=== PATIENT | female | born 1935 | race Caucasian/White ===

== ENCOUNTER 2016-07-10 07:44 | Inpatient (IN) | payer MEDICARE ==
[~2016-07-10] VITALS: Ht 157.5 cm; Wt 49.6 kg
[2016-07-10] VITALS (7 sets, daily range): BP systolic 159–224; BP diastolic 72–104; PULSE 64–76; RESP 16–20; TEMP 96.7–98.7; O2SAT 95–98
[~2016-07-10 07:44] MED LIST: ALPR.25 PO; ASPI81TA82 PO; CALC750C PO; CITR500T PO; CORE12.5 PO; COZA50TA PO; GABA300C3 PO; MULT1TAB46 PO; PROM25TA5 PO; ROSU20 PO; TRAM50TA PO; WARF2.5 PO; WARF2.5T40 PO; Z.0.WALKERFRONT; ZOLP5TAB3 PO
[2016-07-10] MEDS ORDERED: SODIUM CHLOR 0.9% 1000 ML INJ 1,000 ML IV SCH ×2 (08:14→10:58)
[2016-07-10] MEDS ORDERED: SODIUM CHLORIDE 0.9% FLUSH 5 ML FLUSH IVF PRN (08:15)
[2016-07-10] MEDS ORDERED: PANTOPRAZOLE SODIUM 40 MG VIAL IVP ONE (08:15)
[2016-07-10] MEDS ORDERED: ONDANSETRON HCL 4 MG/2 ML VIAL IVP ONE (08:15)
--- NOTE | 2016-07-10 08:20 | PD ---
HPI Chief Complaint: Abdominal Pain Time Seen by Provider: 08:14 Travel History International Travel<30 days: No Contact w/Intl Traveler<30days: No Traveled to known affect area: No History of Present Illness HPI 81yo F with PMH of CAD s/p bypass surgery, HTN and left knee replacement presents to the ED with c/o generalized abdominal pain since 2am today. States she is dry heaving and pain is worst when she does not. Also had some chest discomfort when she is dry heaving. Denies any chest pain otherwise. Denies any fever, sob, urinary complaints, diarrhea, focal weakness or numbness. States she ate at [employer] last night and her had diarrhea. Pain is hard to describe and is generalized in the abdomen. Has not really had similar pain before. PFSH Past Medical History Hx Anticoagulant Therapy: Yes Arthritis: Yes Heart Rhythm Problems: Yes (a fib) Cancer: Yes (skin ca) Cardiac Catheterization: Yes Cardiovascular Problems: Yes (multi bypass surgery, afib ) High Cholesterol: Yes Coronary Artery Disease: Yes Diabetes: No Diminished Hearing: No Endocrine: No Glaucoma: No Genitourinary: No Hepatitis: No Hiatal Hernia: No Hypertension: Yes Immune Disorder: Yes (polymyalgia) Musculoskeletal: Yes (arthritis) Neurologic: No Psychiatric: No Reproductive: No Respiratory: No Thyroid Disease: No Menopausal: Yes Past Surgical History Abdominal Surgery: No AICD: No Cardiac Surgery: Yes (multi cardiac bypass) Coronary Artery Bypass Graft: Yes (7 vessel bypass) Ear Surgery: No Endocrine Surgery: No Eye Surgery: Yes (bilateral catract surgery) Genitourinary Surgery: No Gynecologic Surgery: No Joint Replacement: No Neurologic Surgery: No Oral Surgery: Yes (CAPS) Pacemaker: No Thoracic Surgery: Yes Social History Alcohol Use: Yes (WINE OCCAS.) Tobacco Use: No Substance Use: No Allergies-Medications (Allergen,Severity, Reaction): Coded Allergies: Erythromycin (Unverified Allergy, Severe, DYSPNEA, ANXIETY, 07/10/16) Latex (Unverified Allergy, Intermediate, 07/10/16) Penicillin (Unverified Allergy, Unknown, 07/10/16) Codeine (Unverified Adverse Reaction, Severe, VOMITING, 07/10/16) Reported Meds & Prescriptions Reported Meds & Active Scripts Active Reported Zolpidem (Zolpidem Tartrate) 5 Mg Tab 5 Mg PO HS PRN Alprazolam 0.25 Mg Tab 0.25 Mg PO Q8H PRN Tums (Calcium Carbonate (Antacid)) 500 Mg Chew 500 Mg CHEW DAILY Warfarin 2.5 Mg Tab 2.5 Mg PO SUTUTHSA Warfarin 3 Mg Tab 3 Mg PO MOWEFR Aspirin 81 (Aspirin) 81 Mg Tabdr 81 Mg PO MOWEFR Crestor (Rosuvastatin Calcium) 10 Mg Tab 10 Mg PO HS Carvedilol 6.25 Mg Tab 6.25 Mg PO BID Losartan (Losartan Potassium) 50 Mg Tab 50 Mg PO DAILY Review of Systems Except as stated in HPI: all other systems reviewed are Neg Physical Exam Narrative GENERAL: 81yo F not in distress. SKIN: Warm and dry. HEAD: Atraumatic. Normocephalic. NECK: Trachea midline. No JVD. CARDIOVASCULAR: Regular rate and rhythm. No murmur appreciated. RESPIRATORY: No accessory muscle use. Clear to auscultation. Breath sounds equal bilaterally. GASTROINTESTINAL: Abdomen soft, ttp epigastric, RLQ and periumbilical region. No rebound tenderness or guarding. MUSCULOSKELETAL: No obvious deformities. No clubbing. No cyanosis. No edema. NEUROLOGICAL: Awake and alert. No obvious cranial nerve deficits. Motor grossly within normal limits. Normal speech. PSYCHIATRIC: Appropriate mood and affect; insight and judgment normal. Data Data Last Documented VS Vital Signs Date Time Temp Pulse Resp B/P Pulse Ox O2 Delivery O2 Flow Rate FiO2 07/10/16 10:00 76 16 174/72 97 Room Air 07/10/16 08:10 98.3 Orders Complete Blood Count With Diff (07/10/16 08:14) Comprehensive Metabolic Panel (07/10/16 08:14) Lipase (07/10/16 08:14) Prothrombin Time / Inr (Pt) (07/10/16 08:14) Act Partial Throm Time (Ptt) (07/10/16 08:14) Ct Abd/Pel W Iv Contrast(Rout) (07/10/16 08:14) Iv Access Insert/Monitor (07/10/16 08:14) Ecg Monitoring (07/10/16 08:14) Oximetry (07/10/16 08:14) Ondansetron Inj (Zofran Inj) (07/10/16 08:15) Pantoprazole Inj (Protonix Inj) (07/10/16 08:15) Sodium Chlor 0.9% 1000 Ml Inj (Ns 1000 M (07/10/16 08:14) Sodium Chloride 0.9% Flush (Ns Flush) (07/10/16 08:15) Electrocardiogram (07/10/16 08:14) Troponin I (07/10/16 08:14) Hydralazine Inj (Apresoline Inj) (07/10/16 09:00) Metoclopramide Inj (Reglan Inj) (07/10/16 09:15) Iohexol 350 Inj (Omnipaque 350 Inj) (07/10/16 09:37) Ketorolac Inj (Toradol Inj) (07/10/16 10:00) D5-1/2 Ns + Kcl 20 Meq Inj (D5-1/2 Ns + (07/10/16 10:15) NPO (07/10/16 10:03) Admit Order (Ed Use Only) (07/10/16 10:18) Labs Laboratory Tests Test 07/10/16 08:18 White Blood Count 10.3 TH/MM3 Red Blood Count 4.85 MIL/MM3 Hemoglobin 15.2 GM/DL Hematocrit 44.9 % Mean Corpuscular Volume 92.7 FL Mean Corpuscular Hemoglobin 31.4 PG Mean Corpuscular Hemoglobin 33.8 % Concent Red Cell Distribution Width 12.9 % Platelet Count 206 TH/MM3 Mean Platelet Volume 7.6 FL Neutrophils (%) (Auto) 87.7 % Lymphocytes (%) (Auto) 5.9 % Monocytes (%) (Auto) 2.9 % Eosinophils (%) (Auto) 0.4 % Basophils (%) (Auto) 3.1 % Neutrophils # (Auto) 9.1 TH/MM3 Lymphocytes # (Auto) 0.6 TH/MM3 Monocytes # (Auto) 0.3 TH/MM3 Eosinophils # (Auto) 0.0 TH/MM3 Basophils # (Auto) 0.3 TH/MM3 CBC Comment DIFF FINAL Differential Comment Prothrombin Time 20.7 SEC Prothromb Time International 1.8 RATIO Ratio Activated Partial 35.9 SEC Thromboplast Time Sodium Level 135 MEQ/L Potassium Level 4.1 MEQ/L Chloride Level 95 MEQ/L Carbon Dioxide Level 28.7 MEQ/L Anion Gap 11 MEQ/L Blood Urea Nitrogen 9 MG/DL Creatinine 0.84 MG/DL Estimat Glomerular Filtration 65 ML/MIN Rate Random Glucose 142 MG/DL Calcium Level 9.4 MG/DL Total Bilirubin 1.2 MG/DL Aspartate Amino Transf 32 U/L (AST/SGOT) Alanine Aminotransferase 25 U/L (ALT/SGPT) Alkaline Phosphatase 75 U/L Troponin I LESS THAN 0.02 NG/ML Total Protein 7.6 GM/DL Albumin 3.7 GM/DL Lipase 93 U/L [facility] Medical Decision Making Medical Screen Exam Complete: Yes Emergency Medical Condition: Yes Interpretation(s) EKG: NSR 63bpm. LAD. TWI aVL, V2. Q wave V1, V2. III. Differential Diagnosis Gastroenteritis vs. pancreatitis vs. colitis vs. appendicitis vs. UTI Narrative Course 81yo F with abdominal pain since 2am this morning. +Nausea and dry heaving. No history of abdominal surgery. Pt with cardiac history and bypass surgery. Labs reviewed, no leukocytosis. Mild elevation in total bilirubin 1.2. Troponin negative. Lipase normal. Liver enzymes and alk phos normal. INR subtherapeutic at 1.8. Pt is on coumadin. CT abd/pelvis showed suspicion for a small bowel obstruction versus ileus. No intrapelvic mass seen and no discrete transition point identified. There is mild abdominopelvic ascites. Pt had normal bowel movement yesterday. Pt is very tender in right lower and mid abdomen. Clinically I feel that pt has ileus rather than small bowel obstruction since she is having flatus, and last bowel movement was yesterday. She states she hasnt had good bowel movement since her left knee surgery a few months ago. I discussed case with general surgeon Dr. Alvarez and he is aware of her and consultation was placed. I discussed with Dr. Webb who accepted pt to her service. Diagnosis Primary Impression: Ileus Admitting Information Admitting Physician Requests: Admit Susanne Barnes DO Jul 10, 2016 08:20 Susanne Barnes DO Jul 10, 2016 08:20
[2016-07-10 08:49] LABS: AUTOMATED NEUTROPHIL # 9.1 TH/MM3 (1.8-7.7); BASOPHIL # 0.3 TH/MM3 (0-0.2); BASOPHIL % 3.1 % (0.0-2.0); EOSINOPHIL % 0.4 % (0.0-4.0); HEMATOCRIT 44.9 % (35.0-46.0); LYMPH % 5.9 % (9.0-44.0); LYMPHOCYTE # 0.6 TH/MM3 (1.0-4.8); MEAN CELL VOLUME 92.7 FL (80.0-100.0); MEAN CORPUSCULAR HEMOGLOBIN 31.4 PG (27.0-34.0); MEAN CORPUSCULAR HGB CONC 33.8 % (32.0-36.0); MONO % 2.9 % (0.0-8.0); NEUT % 87.7 % (16.0-70.0); PLATELET COUNT 206 TH/MM3 (150-450); RED BLOOD COUNT 4.85 MIL/MM3 (4.00-5.30); RED CELL DISTRIBUTION WIDTH 12.9 % (11.6-17.2); WHITE BLOOD COUNT 10.3 TH/MM3 (4.0-11.0)
[2016-07-10 08:53] LABS: HEMO FLAGS DIFF FINAL
[2016-07-10 08:54] LABS: CHLORIDE 95 MEQ/L (98-107); POTASSIUM 4.1 MEQ/L (3.5-5.1); SODIUM (NA) 135 MEQ/L (136-145)
[2016-07-10 08:58] LABS: ANION GAP 11 MEQ/L (5-15); BICARBONATE 28.7 MEQ/L (21.0-32.0); BLOOD UREA NITROGEN 9 MG/DL (7-18)
[2016-07-10 09:00] LABS: APTT (PATIENT) 35.9 SEC (24.3-30.1); INTERNATIONAL NORMALIZED RATIO 1.8 RATIO; PROTHROMBIN TIME - PATIENT 20.7 SEC (9.8-11.6)
[2016-07-10] MEDS ORDERED: hydrALAZINE HCL 20 MG/ML VIAL IV PUSH ONE (09:00)
[2016-07-10 09:01] LABS: ALT (GPT) 25 U/L (10-53); AST (GOT) 32 U/L (15-37); GLOMERULAR FILTRATION RATE 65 ML/MIN (>89)
[2016-07-10 09:03] LABS: TOTAL BILIRUBIN ADULT 1.2 MG/DL (0.2-1.0)
[2016-07-10 09:04] LABS: ALKALINE PHOSPHATASE 75 U/L (45-117)
[2016-07-10] MEDS ORDERED: WARF-58 PO (09:09)
[2016-07-10] MEDS ORDERED: ASPI-110 PO (09:09)
[2016-07-10] MEDS ORDERED: WARF-18 PO (09:09)
[2016-07-10] MEDS ORDERED: ALPR0.25 PO (09:09)
[2016-07-10] MEDS ORDERED: LOSA50TA PO (09:09)
[2016-07-10] MEDS ORDERED: ZOLP5TAB3 PO (09:09)
[2016-07-10] MEDS ORDERED: CARV6.252 PO (09:09)
[2016-07-10] MEDS ORDERED: TUMS500C CHEW (09:09)
[2016-07-10] MEDS ORDERED: ROSU10 PO (09:09)
[2016-07-10] MEDS ORDERED: METOCLOPRAMIDE INJ 10 MG in SODIUM CHLORIDE 0.9% INJ 50 ML IV ONE (09:15)
[2016-07-10] MEDS ORDERED: IOHEXOL 350 MG/ML 10 ML VIAL (for RAD DIAG) IV ONE (09:37)
--- NOTE | 2016-07-10 09:50 | RADHPO ---
EXAM DATE/TIME: 07/10/2016 09:25 [facility] COMPARISON: No previous studies available for comparison. INDICATIONS : Diffuse abdominal pain. Nausea and vomiting. IV CONTRAST: 80 cc Omnipaque 350 (iohexol) IV ORAL CONTRAST: No oral contrast ingested. RADIATION DOSE: 4.73 CTDIvol (mGy) MEDICAL HISTORY : Cardiovascular disease. Hypertension. Gastroesophageal reflux disease. SURGICAL HISTORY : CABG ENCOUNTER: Initial ACUITY: 1 day PAIN SCALE: 7/10 LOCATION: Diffuse abdomen. TECHNIQUE: Volumetric scanning of the abdomen and pelvis was performed. Using automated exposure control and ad justment of the mA and/or kV according to patient size, radiation dose was kept as low as reasonably achievable to obtain optimal diagnostic quality images. FINDINGS: The examination is abnormal demonstrating diffusely dilated loops of small bowel which measure up to 3.6 cm in diameter. There are a few air-fluid levels present. No oral contrast was used. The diste nded loops appear to be in the mid and distal small bowel. There is also free fluid present in the u pper abdomen, tracking down both paracolic gutters and a mild amount of free fluid in the pelvis. No evidence of free air. The liver, spleen, kidneys, adrenal glands, and pancreas are grossly intact. Wall calcification is p resent in nondistended abdominal aorta. The visualized lower lungs are clear. Wide windows for bony detail demonstrate the osseous structures to be intact. CONCLUSION: Findings are suspicious for a small bowel obstruction versus ileus. No intrapelvic mass seen and no discrete transition point identified. There is also a mild amount of abdominopelvic ascites. Ralph Baeza MD on July 10, 2016 at 9:42 Board Certified Radiologist. This report was verified electronically.
[2016-07-10] MEDS ORDERED: KETOROLAC TROMETHAMINE 30 MG/ML (IVP) VIAL IV PUSH ONE ×2 (10:00→10:45)
[2016-07-10] MEDS ORDERED: D5-1/2 NS + KCL 20 MEQ INJ 1,000 ML IV SCH (10:15)
[2016-07-10] MEDS ORDERED: SODIUM CHLORIDE 0.9% FLUSH 5 ML FLUSH FLUSH PRN ×2 (11:00→13:30)
[2016-07-10] MEDS ORDERED: PROCHLORPERAZINE 25 MG SUPP PR PRN (11:00)
[2016-07-10] MEDS ORDERED: ONDANSETRON HCL 4 MG/2 ML VIAL IVP PRN (11:00)
[2016-07-10] MEDS ORDERED: ACETAMINOPHEN 325 MG TAB PO PRN (13:30)
[2016-07-10] MEDS ORDERED: NALOXONE HCL 0.4 MG/ML AMP IV PRN (13:30)
[2016-07-10] MEDS ORDERED: WARFARIN SOD 2.5 MG TAB PO SCH (16:00)
--- NOTE | 2016-07-10 17:40 | HHI.PR ---
Addendum to Inpatient Note Addendum Reason: Additional Documentation Additional Information Pt seen, full dictation to follow. Ate at [employer] about 2pm yesterday ( salad and spagetti with meat sauce), had minimal for dinner at home last PM, awakened at 2am with dry heaves and abdominal pain. No actual emesis. No diarrhea. Feeling better now and abdominal pain mostly gone, just achy. No vomiting this afternoon. concerned about not having her medications today. Will start a clear liquid diet as she has bowel sounds at this time. recheck labs in the AM. Increase activity as tolerated. I doubt bowel obstruction at this time and more likely to be gastroenteritis in nature. Abdomen is benign on exam. She has chronic GI sensativity. Josette Hyatt MD Jul 10, 2016 17:40
[2016-07-10] MEDS: D5-1/2 NS + KCL 20 MEQ INJ 1,000 ML IV SCH ×2 (18:11→21:05)
[2016-07-10] MEDS: ALPRAZolam 0.25 MG TAB PO PRN (18:11)
--- NOTE | 2016-07-10 18:56 | EKG ---
Date Performed: 07/10/2016 Time Performed: 08:36:34 PTAGE: 81 years EKG: Sinus rhythm Left axis deviation rSr'(V1) - probable normal variant Left ventricular hypertrophy Septal and later al ST-T changes may be due to hypertrophy and/or ischemia Abnormal ECG PREVIOUS TRACING : 02/28/2005 01.15 Compared to the previous tracing, change in transition in Q RS may be due to lead placement DOCTOR: Everton Biswas Interpretating Date/Time 07/10/2016 18:55:26
[2016-07-10] MEDS: ATORVASTATIN 20 MG TAB PO SCH (21:00)
[2016-07-10] MEDS ORDERED: SODIUM CHLORIDE 0.9% FLUSH 5 ML FLUSH FLUSH SCH (21:00)
[2016-07-10] MEDS: SODIUM CHLORIDE 0.9% FLUSH 5 ML FLUSH FLUSH SCH (21:00)
[2016-07-10] MEDS: CARVEDILOL 6.25 MG TAB PO SCH (21:00)
[2016-07-10] MEDS: ZOLPIDEM TARTRATE 5 MG TAB PO PRN (21:06)
[2016-07-11] VITALS (8 sets, daily range): BP systolic 152–199; BP diastolic 70–93; PULSE 65–88; RESP 12–20; TEMP 96.5–98.9; O2SAT 96–100
[2016-07-11] MEDS: ENALAPRILAT 1.25 MG/ML VIAL IV PUSH PRN ×3 (05:11→21:33)
[2016-07-11] MEDS: D5-1/2 NS + KCL 20 MEQ INJ 1,000 ML IV SCH (05:14)
--- NOTE | 2016-07-11 06:30 | RADHPO ---
EXAM DATE/TIME: 07/11/2016 06:07 [facility] COMPARISON: CT ABDOMEN & PELVIS W CONTRAST, July 10, 2016, 9:25. INDICATIONS : Abdominal pain, nausea MEDICAL HISTORY : Cardiovascular disease. Hypertension. Gastroesophageal reflux disease SURGICAL HISTORY : CABG. ENCOUNTER: Subsequent ACUITY: 2 days PAIN SCORE: 7/10 LOCATION: Entire abdomen FINDINGS: There are extensive atherosclerotic calcifications of the aorta and iliac vessels. Multiple dilated l oops of gas-filled small bowel are again seen in the left mid to upper abdomen. A relative paucity of distal bowel gas is noted. A small bowel obstruction is suspected. There is degenerative disc diseas e and mild levoscoliosis centered at L4. CONCLUSION: Dilated bowel loops concerning for small bowel obstruction. Cristian Cordero MD on July 11, 2016 at 6:27 Board Certified Radiologist. This report was verified electronically.
[2016-07-11 07:01] LABS: AUTOMATED NEUTROPHIL # 11.5 TH/MM3 (1.8-7.7); BASOPHIL % 0.1 % (0.0-2.0); EOSINOPHIL % 0.1 % (0.0-4.0); HEMATOCRIT 44.6 % (35.0-46.0); LYMPH % 6.1 % (9.0-44.0); LYMPHOCYTE # 0.8 TH/MM3 (1.0-4.8); MEAN CELL VOLUME 93.3 FL (80.0-100.0); MEAN CORPUSCULAR HEMOGLOBIN 31.5 PG (27.0-34.0); MEAN CORPUSCULAR HGB CONC 33.8 % (32.0-36.0); MONO % 5.1 % (0.0-8.0); NEUT % 88.6 % (16.0-70.0); PLATELET COUNT 208 TH/MM3 (150-450); RED BLOOD COUNT 4.78 MIL/MM3 (4.00-5.30); RED CELL DISTRIBUTION WIDTH 13.4 % (11.6-17.2)
[2016-07-11 07:06] LABS: POTASSIUM 4.3 MEQ/L (3.5-5.1)
[2016-07-11 07:10] LABS: HEMO FLAGS DIFF FINAL
[2016-07-11 07:15] LABS: BICARBONATE 24.9 MEQ/L (21.0-32.0)
[2016-07-11] MEDS: SODIUM CHLORIDE 0.9% FLUSH 5 ML FLUSH FLUSH SCH ×2 (08:18→21:33)
--- NOTE | 2016-07-11 08:48 | MH ---
cc: ERASMO RUSSO M.D. DATE OF ADMISSION: 07/10/2016 The patient was seen at 5:30 p.m. on 07/10/2016. CHIEF COMPLAINT Abdominal pain. ADMITTING DIAGNOSIS Bilious, possible small bowel obstruction. HISTORY OF PRESENT ILLNESS Ms. Rios is an 81-year-old white female who has had chronic GI complaints in the past but nothing to this extent. She notes she ate at the [employer] at about 2 o'clock on 07/09/2016 and had a salad and spaghetti with meat sauce. She really was not hungry later in the evening and had just a very light snack in the evening with her . She then awakened at 2 o'clock in the morning with severe abdominal pain and dry heaves that continued for several hours. Thus she came to the emergency department for evaluation. She notes that since arriving to the emergency room and having a few doses of Zofran her nausea has resolved and her abdominal pain is very minimal at this point. She had a bowel movement approximately two days ago that was normal. She has had no blood in her stool, no blood in her urine, no blood in any emesis. She notes she really has not had any significant emesis just dry heaves. She is feeling well at this point, was frustrated that she was on nothing to eat by mouth. She is also concerned about not having her other medications since yesterday evening. PAST MEDICAL HISTORY 1. Osteoporosis. 2. Hyperlipidemia. 3. History of hyponatremia. 4. Thrombocytopenia. 5. Hypertension. 6. Heart disease, status post cardiac bypass. 7. Mitral valve disorder. 8. Gastroesophageal reflux disease. 9. Polymyalgia rheumatica since 2000, now off steroids. 10.Insomnia. 11.Early satiety since 2004. 12.Dyspnea that was existing for quite some time after her cardiac bypass but has improved. 13.Atrial fibrillation. 14.TIA in 2013. PAST SURGICAL HISTORY 1. Cardiac bypass. 2. Rectal fissure repair. 3. Tubal ligation. 4. Left knee replacement February 2016 from which she has healed well, but has had somewhat of a prolonged course of discomfort postoperatively. SOCIAL HISTORY She is since 1954, not currently working. She has a high school education. She has rare alcohol use. She has a never smoker. MEDICATIONS 1. Ambien 5 mg at bedtime p.r.n. 2. Xanax 0.25 mg p.r.n. anxiety. 3. She had been taking gabapentin at night for neuropathic feelings to her legs and her chest since her bypass surgery but has stopped that. 4. Losartan 50 mg once a day. 5. Carvedilol 6.25 mg twice a day. 6. Aspirin 81 mg daily. 7. Crestor 10 mg q.p.m. 8. Tums, two tablets b.i.d. 9. Warfarin 2.5 mg daily, alternating with 3 mg per day. ALLERGIES 1. PENICILLIN CAUSED URTICARIA. 2. MEDROL CAUSED DYSPNEA. 3. CODEINE CAUSED GI UPSET. 4. LISINOPRIL/HYDROCHLOROTHIAZIDE DID NOT TOLERATE. 5. 325 MG ASPIRIN CAUSED NOSEBLEEDS. 6. NORVASC CAUSED HYPOTENSION. 7. CELEBREX CAUSED GI UPSET. FAMILY HISTORY She has a brother who at age 40 with complications of a cardiac bypass surgery. She has two daughters who are healthy. Her father at 57 with presumed cancer. He had COPD. Her mother at 90 with Alzheimer's, MIs in her 40s. She has a sister who had a heart attack at age 78, also with hypertension and rheumatic heart disease status post valve replacement and episode of urosepsis. She has a second sister who is healthy. She has a son who at age 25 of Chris's syndrome. She has another son with a benign kidney tumor and also had cardiac bypass at age 46. IMMUNIZATIONS Tetanus in 1989 and in 2005. Pneumovax-23 in 1999 and 2008. Prevnar given 09/18/2015. Flu vaccine 02/04/2016. OTHER PHYSICIANS Dr. Mckeon, Dr. Auguste, Dr. Carlton Wells, Dr. Racquel Mccloud. REVIEW OF SYSTEMS She denies any chest discomfort at this time other than her normal achiness around her scar site from her bypass surgery. No shortness of breath. She has had no upper respiratory symptoms. No changes in vision or hearing. No sore throat. No lymph nodes in her neck. No rashes. She has had the abdominal pain as described above. Currently with very minimal discomfort, just an achy sensation to her abdomen. She has had no vomiting nor dry heaves for several hours. No bowel movement. She has had normal urination per her report. No vaginal discharge or irritation. She has had no lower extremity edema. No changes to her skin. She still has an ache to her left main but it is overall healing well and she has been walking well. She last saw Dr. Mccloud in January 2016 for bloating, gas, belching and epigastric discomfort. She has had a recent extensive workup and she has been to the [facility] for a second opinion. She had an EGD done 11/26/2015 that showed H. pylori. She apparently was treated with citrucil and stopped metamucil. She was also treated with IBgard at that time. It does not sound like she actually had antibiotic therapy for H. pylori at that time. she has had less regular BM since then. Last BM was on 07/09/16. rest of ROS was negative. PHYSICAL EXAMINATION VITAL SIGNS: Upon admission her blood pressure was 183/99, temperature 98.3, pulse 64, respiratory rate 18. By the time I had seen her last evening her blood pressure was down to 159/80, temperature 96.7, pulse 70, respiratory rate 18, 95% on room air. GENERAL: In general she is a thin, elderly white female lying in bed with her at her bedside. She is somewhat anxious. HEENT: Benign. NECK: Supple without lymphadenopathy. No supraclavicular adenopathy. CARDIOVASCULAR: Regular rate and rhythm without murmur. She did not sound to be in atrial fibrillation at that time. LUNGS: Clear to auscultation bilaterally. No wheezes. No rhonchi. CHEST: She has a sternal scar well-healed. ABDOMEN: Soft. She did have somewhat tinkling bowel sounds but definitely present. I was able to palpate her abdomen without difficulty and she did not appear to be tender other than very minimally to the epigastrium. She had no distension. 2+ femoral pulses. EXTREMITIES: Full range of motion of the hips and knees. Her scar to the left knee has been very well-healed. She has no edema. She has 1+ posterior tibial pulses with warm toes. SKIN: She has no rash noted to her skin. ASSESSMENT AND PLAN 1. Possible ileus. I am really more concerned that she has a gastroenteritis as I have seen several cases of this recently. Her white count was not elevated on admission, it was 10.3, but she did have slight left shift with 87.7% neutrophils. She has had no fever. Given the fact that she now has bowel sounds and she is feeling better, will try her on clear liquids this evening and reinstitute her normal medications from home, and monitor overnight. The emergency room had put in a surgical consultation for small bowel obstruction but I do not see that is an indication at this time and I have called the surgeon to cancel the consult. Will re-consult if needed. 2. Hypertension and heart disease. Will continue her on her usual medications from home. 3. Chronic history of GI issues. She has seen Dr. Mccloud. I will discuss with her further in the morning about the H. pylori and possible therapies if that is an indication. 4. History of atrial fibrillation with anticoagulation. Her INR was 1.8. Will continue her Coumadin as normally directed as there has been no evidence of bleeding. No other DVT prevention is needed at this time. MD KAYE Shi/SOCORRO /7:43 AM /8:01 AM MTDMariama
[2016-07-11] MEDS: LOSARTAN 50 MG TAB PO SCH (08:49)
[2016-07-11] MEDS: CARVEDILOL 6.25 MG TAB PO SCH ×2 (08:49→21:33)
[2016-07-11] MEDS: ASPIRIN EC 81 MG TABEC PO SCH (08:49)
[2016-07-11] MEDS ORDERED: BISACODYL 10 MG SUPP RECTAL ONE (09:15)
--- NOTE | 2016-07-11 09:23 | HHI.FPPN ---
Subjective Remarks Feeling pretty good this AM. Notes pain yesterday was 9-10. Minimal today but rates it about a 5. States her pain this time was much different than her chronic daily discomfort. No fever. She had broth last PM and her PM meds without any problems. Fair sleep last PM as she states the nurses kept waking her up. No BM since admit. No nausea overnight. Was slightly nauseated this AM upon first getting up but that has gone. She is anxious to get some breakfast. no CP, no SOB, knee somewhat achy, otherwise feeling fine. Inquiring about going home. Objective Vitals Vital Signs Date Time Temp Pulse Resp B/P Pulse Ox O2 Delivery O2 Flow Rate FiO2 07/11/16 08:11 97.6 71 16 152/80 99 07/11/16 07:08 98.3 72 20 199/93 96 Manual Cuff/Palpation 07/11/16 05:50 164/70 Automatic Cuff 07/11/16 00:00 98.9 88 20 158/83 96 07/10/16 20:00 98.7 72 20 189/80 96 07/10/16 12:00 96.7 70 18 159/80 95 07/10/16 10:58 72 20 175/80 96 Room Air 07/10/16 10:00 76 16 174/72 97 Room Air I/O 07/10/16 07/10/16 07/10/16 07/11/16 07/11/16 07/11/16 07:00 15:00 23:00 07:00 15:00 23:00 Intake Total 52 ml 989 ml 897 ml 60 ml Balance 52 ml 989 ml 897 ml 60 ml Intake Oral 180 ml 60 ml IV Total 52 ml 809 ml 897 ml # Voids 4 2 # Bowel Movements 0 0 Result Diagram: 07/11/16 0535 07/11/16 0535 Objective Remarks Gen: Thin WF, no distress, appears comfortable, speaking and moving well in bed CV; RRR no murmur, lungs CTA bilaterally, no wheezing, no rhonchi Abd: Soft, not distended or tympanic. No discomfort to percussion. Active BS that sound normal this AM, denies pain during the bowel sounds even the loud ones. She notes minimal mid abdominal discomfort to palpation EXt: no edema, moving well in bed. Urinary Catheter: No Vascular Central Line Catheter: No A/P Discharge Planning To home once tolerating PO diet Problem List: (1) Ileus Status: Acute Plan: her CT scan and then xray this AM still show dilated small bowel loops, however she seems to be doing well. Will continue with clear liquids this AM, give dulcolax suppository to see if we can clear her bowel, increase activity with walking in the halls. Will check on her before lunch and if she has succeeded in BM will advance diet and discharge if tolerating that. I don't see a need for surgical intervention at this time. If worsening with diet/ activity or no BM will hold in hospital until clearing. d/w Dr. Mccloud. My concern is the note of free fluid in her abdomen. She hasn't had abdominal surgery in the past. No other reason for the fluid known. Will put a consult to Dr. Tom who is on for their office today. (2) Nausea Status: Acute Plan: Much better. She hasn't had meds since yesterday AM. (3) ASHD (arteriosclerotic heart disease) Status: Chronic Plan: no symptoms at this time. Continue home meds. BPs higher this AM but she didn't have her meds yesterday AM. She will have her morning meds soon. Sees Dr. Narayan outpatient. (4) OA (osteoarthritis) of knee Status: Chronic Plan: She has recently had left knee surgery and healing well but still achy. (5) Constipation Status: Chronic Plan: Chronic issues. She had been on metamucil for years. When she went to the [facility] 12/2015 they told her to stop that and use citrucil. She was using citrucil and benefiber but then just went to benefiber in Jan/Feb but notes she isn't always good at doing that. Feels her bowels haven't been as regular since then. Problem Qualifiers (1) OA (osteoarthritis) of knee: Qualified Code: M17.12 - Primary osteoarthritis of left knee (2) Constipation: Qualified Code: K59.01 - Slow transit constipation Josette Meyer MD Jul 11, 2016 09:23
--- NOTE | 2016-07-11 15:46 | MB ---
cc: MINISTERIO SWEENEY M.D., SANDRA L. M.D. AGNONE, LOUIS M. MD FABIAN, MICHAEL A. M.D. DATE OF CONSULTATION: 07/11/2016 DATE OF : 1935 REASON FOR CONSULTATION: The patient is a 81-year-old white female I was asked to see for further evaluation of abdominal pain, abnormal CT scan. Two days ago she ate lunch at the [employer] that evening about 1:00 to 2:00 o'clock in the morning she developed abdominal pain very generalized in the whole abdomen as an ache, this continued all night and into yesterday. She came to the hospital yesterday with this particular symptom with associated nausea and a little bit of vomiting. She is feeling no better. She tolerated a few sips of both but not much more. She did vomit back up. No prior episodes similar to this, but she does have a chronic problem with abdominal pains of unclear etiology. She has been seen by Dr. Ministerio Mccloud and by the people at the [facility] with no specific etiology having been discovered except for gastroparesis and suspected functional dyspepsia. Biopsies in November 2015 in the stomach revealed a reactive gastropathy. This past November a KUB suggested a nonspecific bowel gas pattern with increased aortoiliac calcifications compared to prior radiologic studies. In June 2012 a HIDA scan showed an 80% gallbladder ejection fraction, the CCK did bring on some cramping. In November 2014 MRA revealed irregular origins at the celiac and SMA suggesting some degree of atherosclerosis. MEDICAL HISTORY 1. Significant for osteoporosis 2. Hyperlipidemia 3. Hyponatremia 4. Thrombocytopenia 5. hypertension 6. coronary artery disease status post seven vessel bypass graft many years ago. 7. She has gastroesophageal reflux 8. polymyalgia rheumatica 9. insomnia 10. early satiety with gastroparesis in 2004 11. dyspnea present after the cardia bypass has improved. 12. She has chronic intermittent atrial fibrillation. 13. She had a Transient ischemic attack in 2013 PAST SURGICAL HISTORY 1. Seven vessel bypass 2. Rectal fissure repair 3. Tubal ligation many years ago 4. Left knee replacement February 2016. SOCIAL HISTORY: No tobacco use essentially no alcohol use. ALLERGIES PENICILLIN MEDROL CODEINE codeine, lisinopril, aspirin, Norvasc, Celebrex MEDICATIONS ON ADMISSION MB in the 1. Xanax. Attempt was recently stopped. 2. Losartan. 3. Carvedilol. 4. Baby aspirin. 5. Crestor tones. 6. Warfarin. FAMILY HISTORY Coronary artery disease. Her father of cancer of unclear etiology. He also had COPD. Mother had Alzheimer's disease and heart attacks sister had a heart attack and hypertension and rheumatic heart disease. REVIEW OF SYSTEMS She has had no history of seizures. No vision difficulties. No auditory problems. No dysphagia or odynophagia. No chest pains or respiratory difficulties. No urinary symptoms. No new rashes. No change in chronic arthritic complaints and no unexplained weight loss. PHYSICAL EXAMINATION VITAL SIGNS: Her weight is 44.8 kg, temperature 96.5, pulse 65, blood pressure 193/79 saturation 100% on room air. She is alert. She is oriented x3. She is and she is anicteric. Extraocular motions are intact x appreciate no submandibular, cervical, supraclavicular, axillary or epitrochlear adenopathy. LUNGS: Clear to auscultation. HEART: Heart exam regular rate and rhythm at this time with no appreciable murmur. ABDOMEN: Abdominal exam high-pitched and tinkling bowel sounds. No appreciable bruit. The abdomen is soft and there is focal tenderness in the right lower quadrant with some mild involuntary guarding. EXTREMITIES: No pedal edema Dupuytren's contractures or palmar erythema. LABORATORY FINDINGS: White count yesterday 10.3 with a hemoglobin of 15.0, with platelets of 206 white count today is 13.0 with a hemoglobin of 15.1 and platelets of 208, INR yesterday was 1.8. Yesterday's liver enzymes are all normal. Sodium 135, potassium 4.1, BUN nine, creatinine 0.84 today sodium 132, potassium 4.3, BUN 13, creatinine 0.73. RADIOLOGY I reviewed the CT scan with the radiologist this reveals an apparent transition at the ileocecal valve with dilated loops of small intestine to 3.6 cm. They were fluid filled with some proximal air-fluid levels. The appearance was suggestive of obstruction more then likely than ileus. Today's abdominal x-ray revealed dilated small bowel loops suggestive of obstruction. IMPRESSION Abdominal pain with dilated bowel loops and some free fluid around the right upper quadrant in this patient underwent tubal ligation many years ago at discussed adhesions and neoplasms other processes that may account for such a process. I will check some tumor markers and have talked to Dr. Lindsay who will see the patient in consultation today. I spoke with the patient and family and the understand the laparoscopy / laparotomy may be necessary to address this process. MD MILLA Davalos/neelam /2:51 PM /3:05 PM
[2016-07-11] MEDS: WARFARIN SOD 3 MG TAB PO SCH (16:00)
[2016-07-11] MEDS: ATORVASTATIN 20 MG TAB PO SCH (21:32)
--- NOTE | 2016-07-11 21:40 | MB ---
cc: MODE PEPE DATE OF CONSULTATION 07/11/2016 REASON FOR CONSULTATION Small bowel obstruction. HISTORY OF PRESENT ILLNESS The patient is an 81-year-old female who developed abdominal pain yesterday and became generalized. She had nausea and a small amount of emesis. She continues to have some pain, but had no similar episodes prior to this. The patient does have chronic problem with abdominal pain of unclear etiology and chronic constipation for which she takes multiple [id number] remedies. The patient had been seen by specialists at [facility] with discovery of gastroparesis and functional dyspepsia. The patient had reactive gastropathy. The patient had HIDA scan in June 2012 with an 80% gallbladder EF and a small amount of cramping with CCK. MRA in November 2014 had irregular origins of the celiac and SMA suggesting some degree of atherosclerosis. PAST MEDICAL HISTORY 1. Hyperlipidemia, 2. Thrombocytopenia, 3. Osteoporosis, 4. Hypertension, 5. Coronary disease status post seven vessel bypass graft years ago. 6. GE reflux 7. Polymyalgia rheumatica 8. Insomnia, 9. Early satiety with gastroparesis, 10. Chronic intermittent atrial fibrillation and TIA in 2013 11. Left total knee replacement February 2016 PAST SURGICAL HISTORY 1. Tubal ligation many years ago 2. Rectal fissure repair. SOCIAL HISTORY The patient does not smoke and does not take in hardly any alcohol. ALLERGIES PENICILLIN MEDROL CODEINE MEDICATIONS On admission 1. Coumadin 2. Crestor 3. Baby aspirin. 4. Carvedilol. 5. Losartan PHYSICAL EXAMINATION GENERAL: A thin female in no acute distress. VITAL SIGNS: BP 160/71, pulse 69, respirations 18, temp 97.6, 96% saturation on room air. HEENT: Sclerae anicteric. Pupils reactive. CHEST: Clear to auscultation. CARDIAC: Regular rate and rhythm today. I do not appreciate any murmurs. ABDOMEN: Soft and minimally tender and nondistended. There are no peritoneal signs noted. There are no hernias noted. EXTREMITIES: Pulses are intact. NEUROLOGIC: Exam is nonfocal. LABORATORY DATA WBCs of 13.0, up from 10.3 this morning. Chemistries demonstrate some mild hyponatremia with sodium 132, chloride 97, BUN and creatinine 13 and 0.7. I have spoken with Dr. Tom and he has ordered tumor markers as the patient also has, on imaging, fluid around the liver and down in the pelvis. There are multiple dilated loops of small bowel with no transition point noted. IMAGING STUDIES KUB demonstrates some stool in the right lower quadrant. There is not a large amount of stool on the CT scan, but it is present throughout the transverse and ascending colon. ASSESSMENT Small bowel ileus versus obstruction. The patient has not had a colonoscopy in many years and likely is due for one. We will obtain a gastrographin enema and have spoken with the radiologist. The patient cannot have this in [place] throughout the weekend and would benefit from transfer to the main campus for gastrographin enema in the morning. This would be both therapeutic and diagnostic for this patient. I have discussed this with the radiologist who is in agreement. If this is negative or the patient has resolution of her symptoms, she could be started on the diet. In the absence of this and continued problems, laparoscopy may be considered. I have discussed this with the patient, her and daughter. They vocalize understanding of the need for the enema. MD BETHANY Arcos/ /7:53 PM /9:06 PM
[2016-07-11] MEDS ORDERED: CARVEDILOL 6.25 MG TAB PO ONE (22:30)
[2016-07-12] VITALS: BP 141/81; PULSE 83; RESP 20; TEMP 98.5; O2SAT 99
[2016-07-12] MEDS: ZOLPIDEM TARTRATE 5 MG TAB PO PRN ×2 (01:17→21:11)
[2016-07-12 08:00] VITALS: BP 150/66; PULSE 71; RESP 17; TEMP 99; O2SAT 94
[2016-07-12] MEDS: SODIUM CHLORIDE 0.9% FLUSH 5 ML FLUSH FLUSH SCH ×2 (08:16→22:14)
[2016-07-12] MEDS: CARVEDILOL 12.5 MG TAB PO SCH ×2 (08:16→20:59)
[2016-07-12] MEDS: LOSARTAN 50 MG TAB PO SCH (08:16)
--- NOTE | 2016-07-12 10:10 | HHI.GIFU ---
GI Follow-up Note Consult Follow-up Subjective: Patient laying in bed comfortably, no new complaints except abd is more distended compared to her baseline. Increased belching and regurgitation but no nausea or emesis. No flatus. Objective: PHYSICAL EXAMINATION: Vitals signs stable No fever HEENT: EOMI ABDOMEN: Soft, minimally distended, tympanitic, naphthalene still operator in low abdomen. EXTREMITIES: No edema. EMOTIONAL SUPPORT TEACHER: alert and oriented times three. Available Data (labs, X- Rays, Procedues) : I reviewed the CT scan with Dr. Vanegas; there is a transition zone in the ileum proximal to the ileocecal valve. Tumor markers are all negative. ASSESSMENT/PLAN:Small bowel obstruction in the ileum. Will cancel gastrografin enema and return pt to the NPO status. Will start IVF and we'll consider enteral nutrition. I've discussed all this with Dr Dueñas. It was a pleasure seeing Ginger Rios Entered by: Corey Heredia MD Jul 12, 2016 10:10
[2016-07-12] MEDS ORDERED: DEXT 5%-NACL 0.45% 1000 ML INJ 1,000 ML IV SCH (11:00)
[2016-07-12] MEDS: D5-1/2 NS + KCL 10 MEQ INJ 1,000 ML IV SCH ×2 (11:33→22:13)
[2016-07-12 12:00] VITALS: BP 120/53; PULSE 65; RESP 16; TEMP 97.5; O2SAT 93
--- NOTE | 2016-07-12 14:52 | HHI.PR ---
Subjective Remarks Follow up for SBO vs ileus, with abdominal pain. The patient reports continued diffuse abdominal pain. Still no BM overnight. Had some nausea and dry heaves overnight, last episode of vomiting was yesterday, no hematemesis. Denies any other medical complaints. Objective Vitals Vital Signs Date Time Temp Pulse Resp B/P Pulse Ox O2 Delivery O2 Flow Rate FiO2 07/12/16 12:00 97.5 65 16 120/53 93 07/12/16 08:00 99.0 71 17 150/66 94 07/12/16 00:00 98.5 83 20 141/81 99 07/11/16 22:00 182/78 07/11/16 20:03 98.1 67 12 199/87 96 07/11/16 17:33 97.6 69 18 160/71 96 I/O 07/11/16 07/11/16 07/11/16 07/12/16 07/12/16 07/12/16 07:00 15:00 23:00 07:00 15:00 23:00 Intake Total 897 ml 60 ml 420 ml 0 ml Balance 897 ml 60 ml 420 ml 0 ml Intake Oral 60 ml 420 ml 0 ml IV Total 897 ml # Voids 2 6 2 # Bowel Movements 0 Result Diagram: 07/11/16 0535 07/11/16 0535 Imaging Last Impressions Abdomen X-Ray 07/11/16 0600 Signed Impressions: Service Date/Time: Monday, July 11, 2016 06:07 - CONCLUSION: Dilated bowel loops concerning for small bowel obstruction. Cristian Cordero MD Abdomen/Pelvis CT 07/10/16 0814 Signed Impressions: Service Date/Time: June 09:25 - CONCLUSION: Findings are suspicious for a small bowel obstruction versus ileus. No intrapelvic mass seen and no discrete transition point identified. There is also a mild amount of abdominopelvic ascites. Ralph Baeza MD Objective Remarks GENERAL: Well-developed, well-nourished elderly female patient in [facility]. SKIN: Warm and dry. HEENT: Atraumatic. Normocephalic. Pupils equal and round. No scleral icterus. No injection or drainage. Mucous membranes pink and moist. NECK: Trachea midline. CARDIOVASCULAR: Regular rate and rhythm. No murmur appreciated. RESPIRATORY: No accessory muscle use. Clear to auscultation. Breath sounds equal bilaterally. GASTROINTESTINAL: Abdomen soft, nondistended, mild diffuse abdominal TTP. MUSCULOSKELETAL: Extremities without clubbing, cyanosis, or edema. No obvious deformities. NEUROLOGICAL: Awake and alert. No obvious cranial nerve deficits. Motor grossly within normal limits. Normal speech. PSYCHIATRIC: Appropriate mood and affect; insight and judgment normal. Medications and IVs Current Medications Medications (Trade) Dose Ordered Sig/Angelica Route Start Time Stop Time Status Last Admin (Compazine Supp) 25 mg Q12H PRN [place] 07/10/16 11:00 (Vasotec Inj) 1.25 mg Q8H PRN IV PUSH 07/10/16 11:00 07/11/16 21:33 (NS Flush) 2 ml UNSCH PRN FLUSH 07/10/16 13:30 (NS Flush) 2 ml BID FLUSH 07/10/16 21:00 07/12/16 08:16 (Tylenol) 650 mg Q4H PRN PO 07/10/16 13:30 (Zofran Inj) 4 mg Q6H PRN IVP 07/10/16 13:30 (Narcan Inj) 0.4 mg UNSCH PRN IV 07/10/16 13:30 (Xanax) 0.25 mg Q8H PRN PO 07/10/16 13:45 07/10/16 18:11 (Ecotrin Ec) 81 mg MoWeFr PO 07/11/16 09:00 Hold 07/11/16 08:49 (Cozaar) 50 mg DAILY PO 07/11/16 09:00 07/12/16 08:16 (Coumadin) 2.5 mg SuTuThSa@16 PO 07/10/16 16:00 Hold 07/10/16 18:02 (Coumadin) 3 mg MoWeFr@16 PO 07/11/16 16:00 Hold (Ambien) 5 mg HS PRN PO 07/10/16 13:45 07/12/16 01:17 (Lipitor) 20 mg HS PO 07/10/16 21:00 07/11/16 21:32 Carvedilol 12.5 mg 12.5 mg BID PO 07/12/16 09:00 07/12/16 08:16 (D5-1/2 NS + KCl 10 Meq Inj) 1,000 ml @ 100 mls/hr Q10H IV 07/12/16 11:00 07/12/16 11:33 A/P Assessment and Plan 81-year-old female with history of CAD, CABG 7 vessels, HTN, HLD, atrial fibrillation, TIA in 2013, osteoporosis, GERD, polymyalgia rheumatica 2000, presents with acute onset of abdominal pain and dry heaves on 07/09/16. Suspected small bowel obstruction, possible ileus: -Abdomen/pelvis CT done 07/10, images reviewed, findings suspicious for a SBO versus ileus, no mass seen, mild amount of abdominopelvic ascites. -Abdominal x-ray 07/11 showed dilated bowel loops concerning for a SBO. -Per GI, CT showed a transition zone in the ileum proximal to the ileocecal valve. -Gastroenterology and general surgery consulted, appreciate recommendations, considering laparoscopic surgery. -Continue IVF with D5 1/2 NS + KCl. Supportive treatment with IV Zofran and Compazine as needed. Atrial fibrillation: Anticoagulated on Coumadin, INR 1.8. Chads2 Vasc score 6 ( HTN, age, TIA, female). -Coumadin held by the surgeon. Will start heparin drip. -Monitor daily PT/INR. -Continue patient's Coreg for rate control. CAD/HTN/HLD: Chronic, continue patient's Coreg, Cozaar, statin. Aspirin on hold. Anxiety: Chronic, continue Xanax 0.25mg po q8h prn. DVT prophylaxis: Teds/SCDs. On heparin drip. Written by Lilliam Schulte, acting as scribe for Dr. Dennis on 07/12/16 at 14:47. Attending Statement The documentation accurately reflects the work performed [id number] by me, Dr. Dennis on 07/12/16 at 14:47. Lilliam Schulte PA-C Jul 12, 2016 14:52 [place] Dennis MD Jul 14, 2016 03:17
[2016-07-12 16:00] VITALS: BP 108/49; PULSE 61; RESP 20; TEMP 98.2; O2SAT 97
[2016-07-12 16:26] LABS: HEMATOCRIT 40.9 % (35.0-46.0); MEAN CELL VOLUME 92.5 FL (80.0-100.0); MEAN CORPUSCULAR HEMOGLOBIN 31.4 PG (27.0-34.0); MEAN CORPUSCULAR HGB CONC 33.9 % (32.0-36.0); PLATELET COUNT 190 TH/MM3 (150-450); RED BLOOD COUNT 4.42 MIL/MM3 (4.00-5.30); RED CELL DISTRIBUTION WIDTH 13.8 % (11.6-17.2); REVIEW FLAG FINAL; WHITE BLOOD COUNT 10.5 TH/MM3 (4.0-11.0)
[2016-07-12 16:37] LABS: INTERNATIONAL NORMALIZED RATIO 2.4 RATIO
[2016-07-12] MEDS: HEPARIN-D5W INJ 250 ML IV SCH (17:26)
[2016-07-12 20:00] VITALS: BP 180/75; PULSE 71; RESP 18; TEMP 97.2; O2SAT 99
[2016-07-12] MEDS: ATORVASTATIN 20 MG TAB PO SCH (20:59)
[2016-07-12] MEDS ORDERED: HEPARIN SODIUM - IV 10,000 UNITS/10 ML VIAL IV PRN ×2 (21:00)
[2016-07-12] MEDS: ENALAPRILAT 1.25 MG/ML VIAL IV PUSH PRN (22:36)
--- NOTE | 2016-07-12 23:02 | HHI.PR ---
Subjective Subjective Notes no new c/o no vomiting overnight Objective Vitals/I&O Vital Signs Date Time Temp Pulse Resp B/P Pulse Ox O2 Delivery O2 Flow Rate FiO2 07/12/16 16:00 98.2 61 20 108/49 97 07/10/16 10:58 Room Air Labs Laboratory Tests Test 07/12/16 15:20 White Blood Count 10.5 Red Blood Count 4.42 Hemoglobin 13.9 Hematocrit 40.9 Mean Corpuscular Volume 92.5 Mean Corpuscular Hemoglobin 31.4 Mean Corpuscular Hemoglobin 33.9 Concent Red Cell Distribution Width 13.8 Platelet Count 190 Mean Platelet Volume 7.7 Prothrombin Time 27.0 Prothromb Time International 2.4 Ratio Activated Partial 41.0 Thromboplast Time Cardiovascular: Regular Lungs: Clear Abdomen: Non-distended, Non-tender Extremities: Perfused A/P Assessment and Plan 81yo female with SBO, stable. - no vomiting overnight, AF, VSS - minimal distension on exam - possible transition point in distal small bowel - GI following, agree with non-operative mgmt Mane Dueñas MD Jul 12, 2016 23:02
[2016-07-13 00:10] LABS: APTT (PATIENT) 58.1 SEC (24.3-30.1)
[2016-07-13 08:00] VITALS: BP 144/67; PULSE 64; RESP 22; TEMP 96.8; O2SAT 98
[2016-07-13] MEDS: CARVEDILOL 12.5 MG TAB PO SCH ×2 (08:33→23:29)
[2016-07-13] MEDS: LOSARTAN 50 MG TAB PO SCH (08:33)
[2016-07-13] MEDS: D5-1/2 NS + KCL 10 MEQ INJ 1,000 ML IV SCH ×2 (08:33→17:47)
[2016-07-13] MEDS: SODIUM CHLORIDE 0.9% FLUSH 5 ML FLUSH FLUSH SCH ×2 (08:34→23:29)
--- NOTE | 2016-07-13 09:15 | HHI.GIFU ---
GI Follow-up Note Consult Follow-up Subjective: Patient sitting up in chair. C/O increased abdominal distention. Some dry heaves, no emesis. Scant flatus passage. Objective: PHYSICAL EXAMINATION: Vitals signs stable No fever ABDOMEN: More distended and tympanitic; quieter bowel sounds.Similar degree of tenderness in RLQ. EXTREMITIES: No edema. SKIN: Normal; no rash; no jaundice. MUTTON PUNCHER: alert and oriented times three. Available Data (labs, X- Rays, Procedues) : No new results. ASSESSMENT/PLAN:SBO; she's more distended and tympanitic; she's passed scant flatus. Will repeat flat/upright abdominal films. Will follow closely; discussed with Dr. Dueñas. It was a pleasure seeing Ginger Rios Entered by: Corey Heredia MD Jul 13, 2016 09:15
--- NOTE | 2016-07-13 10:32 | RADRPT ---
EXAM DATE/TIME: 07/13/2016 10:17 [place] COMPARISON: ABDOMEN KUB ONLY, July 11, 2016, 6:07. CT ABDOMEN & PELVIS W CONTRAST, July 10, 2016, 9:25. INDICATIONS : Abdominal distention. MEDICAL HISTORY : Gastroesophageal reflux disease. SURGICAL HISTORY : CABG. Tubal ligation. ENCOUNTER: Initial ACUITY: 3 days PAIN SCORE: 0/10 LOCATION: Bilateral abdomen FINDINGS: Moderately distended proximal small bowel with air-fluid levels again noted, not significantly change d. The colon remains decompressed. No free air. CONCLUSION: Persistent small bowel obstruction. Bro Bashir MD on July 13, 2016 at 10:29 Board Certified Radiologist. This report was verified electronically.
[2016-07-13 12:00] VITALS: BP 154/63; PULSE 64; RESP 20; TEMP 97.6; O2SAT 93
--- NOTE | 2016-07-13 12:25 | HHI.PR ---
Subjective Subjective Notes DAILY PROGRESS NOTE FOR SURGICAL ATTENDING, DR. ARSALAN ALVAREZ I feel a little distended I passed a little gas No nausea or vomiting Objective Vitals/I&O Vital Signs Date Time Temp Pulse Resp B/P Pulse Ox O2 Delivery O2 Flow Rate FiO2 07/13/16 08:00 96.8 64 22 144/67 98 07/10/16 10:58 Room Air Labs Laboratory Tests Test 07/12/16 07/12/16 15:20 22:47 White Blood Count 10.5 Red Blood Count 4.42 Hemoglobin 13.9 Hematocrit 40.9 Mean Corpuscular Volume 92.5 Mean Corpuscular Hemoglobin 31.4 Mean Corpuscular Hemoglobin 33.9 Concent Red Cell Distribution Width 13.8 Platelet Count 190 Mean Platelet Volume 7.7 Prothrombin Time 27.0 Prothromb Time International 2.4 Ratio Activated Partial 41.0 58.1 Thromboplast Time Radiology Last Impressions Abdomen X-Ray 07/13/16 0000 Signed Impressions: Service Date/Time: Wednesday, July 13, 2016 10:17 - CONCLUSION: Persistent small bowel obstruction. Bro Bashir MD Abdomen/Pelvis CT 07/10/16 0814 Signed Impressions: Service Date/Time: June 09:25 - CONCLUSION: Findings are suspicious for a small bowel obstruction versus ileus. No intrapelvic mass seen and no discrete transition point identified. There is also a mild amount of abdominopelvic ascites. Ralph Baeza MD Cardiovascular: Regular Lungs: Clear Abdomen: Non-distended, Non-tender, Other (mild distention soreness no rebound or guarding), BS normal Narrative Exam No nausea or vomiting A/P Problem List: (1) Ileus (2) Nausea (3) ASHD (arteriosclerotic heart disease) Assessment and Plan 81-year-old female with findings of an ileus questionable small bowel obstruction She said she passed little flatus However her x-ray continues to show possibility of small bowel obstruction If no improvement in next 24 48 hrs. she may require operative intervention Discussed with Dr. Corey rhodes tomorrow Arsalan Alvarez MD Jul 13, 2016 12:25
[2016-07-13] MEDS ORDERED: MORPHINE SULFATE 4 MG/ML INJ IV PUSH PRN (14:00)
--- NOTE | 2016-07-13 14:09 | HHI.PR ---
Subjective Remarks Follow up for SBO. The patient reports worsening abdominal pain today. No nausea /vomiting. Passed small amount of flatus this morning. Discussed insertion of NG tube, patient agrees if recommended by motor vehicle license clerk or surgeon. Objective Vitals Vital Signs Date Time Temp Pulse Resp B/P Pulse Ox O2 Delivery O2 Flow Rate FiO2 07/13/16 08:00 96.8 64 22 144/67 98 07/12/16 20:00 97.2 71 18 180/75 99 07/12/16 16:00 98.2 61 20 108/49 97 I/O 07/12/16 07/12/16 07/12/16 07/13/16 07/13/16 07/13/16 07:00 15:00 23:00 07:00 15:00 23:00 Intake Total 0 ml 0 ml 1140 ml 0 ml Balance 0 ml 0 ml 1140 ml 0 ml Intake Oral 0 ml 0 ml 0 ml 0 ml IV Total 1140 ml # Voids 2 2 1 3 # Bowel Movements 0 0 0 Result Diagram: 07/12/16 1520 07/11/16 0535 Imaging Last Impressions Abdomen X-Ray 07/13/16 0000 Signed Impressions: Service Date/Time: Wednesday, July 13, 2016 10:17 - CONCLUSION: Persistent small bowel obstruction. Bro Bashir MD Abdomen/Pelvis CT 07/10/16 0814 Signed Impressions: Service Date/Time: June 09:25 - CONCLUSION: Findings are suspicious for a small bowel obstruction versus ileus. No intrapelvic mass seen and no discrete transition point identified. There is also a mild amount of abdominopelvic ascites. Ralph Baeza MD Objective Remarks GENERAL: Well-developed, well-nourished elderly female patient in [facility]. SKIN: Warm and dry. HEENT: Atraumatic. Normocephalic. Pupils equal and round. No scleral icterus. No injection or drainage. Mucous membranes pink and moist. NECK: Trachea midline. CARDIOVASCULAR: Regular rate and rhythm. No murmur appreciated. RESPIRATORY: No accessory muscle use. Clear to auscultation. Breath sounds equal bilaterally. GASTROINTESTINAL: Abdomen soft, nondistended, moderate diffuse abdominal TTP. MUSCULOSKELETAL: Extremities without clubbing, cyanosis, or edema. No obvious deformities. NEUROLOGICAL: Awake and alert. No obvious cranial nerve deficits. Motor grossly within normal limits. Normal speech. PSYCHIATRIC: Appropriate mood and affect; insight and judgment normal. Medications and IVs Current Medications Medications (Trade) Dose Ordered Sig/Angelica Route Start Time Stop Time Status Last Admin (Compazine Supp) 25 mg Q12H PRN [place] 07/10/16 11:00 (Vasotec Inj) 1.25 mg Q8H PRN IV PUSH 07/10/16 11:00 07/12/16 22:36 (NS Flush) 2 ml UNSCH PRN FLUSH 07/10/16 13:30 (NS Flush) 2 ml BID FLUSH 07/10/16 21:00 07/12/16 22:14 (Tylenol) 650 mg Q4H PRN PO 07/10/16 13:30 (Zofran Inj) 4 mg Q6H PRN IVP 07/10/16 13:30 (Narcan Inj) 0.4 mg UNSCH PRN IV 07/10/16 13:30 (Xanax) 0.25 mg Q8H PRN PO 07/10/16 13:45 07/10/16 18:11 (Ecotrin Ec) 81 mg MoWeFr PO 07/11/16 09:00 Hold 07/11/16 08:49 (Cozaar) 50 mg DAILY PO 07/11/16 09:00 07/13/16 08:33 (Coumadin) 2.5 mg SuTuThSa@16 PO 07/10/16 16:00 Hold 07/10/16 18:02 (Coumadin) 3 mg MoWeFr@16 PO 07/11/16 16:00 Hold (Ambien) 5 mg HS PRN PO 07/10/16 13:45 07/12/16 21:11 (Lipitor) 20 mg HS PO 07/10/16 21:00 07/12/16 20:59 Carvedilol 12.5 mg 12.5 mg BID PO 07/12/16 09:00 07/13/16 08:33 (D5-1/2 NS + KCl 10 Meq Inj) 1,000 ml @ 100 mls/hr Q10H IV 07/12/16 11:00 07/13/16 08:33 (Heparin Inj) 5,000 units UNSCH PRN IV 07/12/16 21:00 Heparin Sodium (Porcine) 2500 units 2,500 units UNSCH PRN IV 07/12/16 21:00 (Heparin-D5W Inj) 250 ml @ 0 mls/hr TITRATE IV 07/12/16 15:00 07/12/16 17:26 (Morphine Inj) 2 mg Q3H PRN IV PUSH 07/13/16 14:00 UNV A/P Problem List: (1) Small bowel obstruction ICD Code: K56.69 Status: Acute Assessment and Plan 81-year-old female with history of CAD, CABG 7 vessels, HTN, HLD, atrial fibrillation, TIA in 2013, osteoporosis, GERD, polymyalgia rheumatica 2000, presents with acute onset of abdominal pain and dry heaves on 07/09/16. Small bowel obstruction: -Abdomen/pelvis CT done 07/10, images reviewed, findings suspicious for a SBO versus ileus, no mass seen, mild amount of abdominopelvic ascites. -Abdominal x-ray 07/11 showed dilated bowel loops concerning for a SBO. -Per GI, CT showed a transition zone in the ileum proximal to the ileocecal valve. -Gastroenterology and general surgery consulted, appreciate recommendations, considering laparoscopic surgery if no improvement in 24-48hrs. -Continue IVF with D5 1/2 NS + KCl. Supportive treatment with IV Zofran and Compazine as needed. -Repeat abdominal x-ray 07/13 with persistent SBO -After discussion with Dr. Tom and Dr. Alvarez, ordered NGT placement -IV morphine prn pain, however pt would like to try oral, give po oxycodone 5mg prn -07/13 dw GI and Surgery. surgery agrees placing NGT worth a try. pt tolerated placement well per nursing. Atrial fibrillation: Anticoagulated on Coumadin, INR 1.8. Chads2 Vasc score 6 ( HTN, age, TIA, female). -Coumadin held by the surgeon. -Continue IV heparin drip. -Monitor daily PT/INR. -Continue patient's Coreg for rate control. CAD/HTN/HLD: Chronic, continue patient's Coreg, Cozaar, statin. Aspirin on hold. Anxiety: Chronic, continue Xanax 0.25mg po q8h prn. DVT prophylaxis: Teds/SCDs. On heparin drip. Written by Lilliam Schulte, acting as scribe for Dr. Dennis on 07/13/16 at 14: 04. The documentation accurately reflects the work performed [id number] by me, Dr. Dennis on 07/13/16 at 14:04. Lilliam Schulte PA-C Jul 13, 2016 14:09 [place] Dennis MD Jul 14, 2016 02:22
[2016-07-13] MEDS: ONDANSETRON HCL 4 MG/2 ML VIAL IVP PRN ×2 (14:46→23:28)
[2016-07-13] MEDS: ALPRAZolam 0.25 MG TAB PO PRN (15:13)
[2016-07-13 15:44] LABS: BICARBONATE 25.3 MEQ/L (21.0-32.0); POTASSIUM 4.2 MEQ/L (3.5-5.1)
[2016-07-13 16:00] VITALS: BP 122/58; PULSE 60; RESP 16; TEMP 98.4; O2SAT 95
[2016-07-13 20:00] VITALS: BP 137/63; PULSE 64; RESP 20; TEMP 98.2; O2SAT 98
[2016-07-13] MEDS: ATORVASTATIN 20 MG TAB PO SCH (23:28)
[2016-07-13] MEDS: ZOLPIDEM TARTRATE 5 MG TAB PO PRN (23:28)
[2016-07-14] VITALS: BP 108/56; PULSE 67; RESP 20; TEMP 98.1; O2SAT 99
[2016-07-14] MEDS: D5-1/2 NS + KCL 10 MEQ INJ 1,000 ML IV SCH (03:02)
[2016-07-14 05:44] LABS: INTERNATIONAL NORMALIZED RATIO 2.6 RATIO; PROTHROMBIN TIME - PATIENT 30.3 SEC (9.8-11.6)
[2016-07-14 06:02] LABS: APTT (PATIENT) 103.4 SEC (24.3-30.1)
[2016-07-14 08:00] VITALS: BP 125/54; PULSE 63; RESP 16; TEMP 98.1; O2SAT 95
[2016-07-14] MEDS: LOSARTAN 50 MG TAB PO SCH (09:00)
[2016-07-14] MEDS: SODIUM CHLORIDE 0.9% FLUSH 5 ML FLUSH FLUSH SCH ×2 (09:00→22:00)
[2016-07-14] MEDS: CARVEDILOL 12.5 MG TAB PO SCH ×2 (09:00→21:59)
[2016-07-14] MEDS ORDERED: DIATRIZOATE MEGLUM/DIATRIZOATE SOD 120 ML BTL (for RAD DIAG) NG ONE (10:27)
--- NOTE | 2016-07-14 10:42 | HHI.PR ---
Subjective Subjective Notes Resting in bed Frustrated because she is not getting better yet Reports not passing flatus Objective Vitals/I&O Vital Signs Date Time Temp Pulse Resp B/P Pulse Ox O2 Delivery O2 Flow Rate FiO2 07/14/16 08:00 98.1 63 16 125/54 95 07/10/16 10:58 Room Air Labs Laboratory Tests Test 07/13/16 07/14/16 14:55 04:58 Sodium Level 128 Potassium Level 4.2 Chloride Level 95 Carbon Dioxide Level 25.3 Anion Gap 8 Blood Urea Nitrogen 14 Creatinine 0.64 Estimat Glomerular Filtration 89 Rate Random Glucose 131 Calcium Level 8.3 Prothrombin Time 30.3 Prothromb Time International 2.6 Ratio Activated Partial 103.4 Thromboplast Time Radiology Last Impressions Abdomen X-Ray 07/13/16 0000 Signed Impressions: Service Date/Time: Wednesday, July 13, 2016 10:17 - CONCLUSION: Persistent small bowel obstruction. Bro Bashir MD Abdomen/Pelvis CT 07/10/16 0814 Signed Impressions: Service Date/Time: June 09:25 - CONCLUSION: Findings are suspicious for a small bowel obstruction versus ileus. No intrapelvic mass seen and no discrete transition point identified. There is also a mild amount of abdominopelvic ascites. Ralph Baeza MD Cardiovascular: Regular Lungs: Clear Abdomen: Other (mildly distended but tender to palpation over entire abdomen; NGT in place to LIWS ) Extremities: No edema A/P Problem List: (1) Ileus (2) Nausea (3) ASHD (arteriosclerotic heart disease) Assessment and Plan 81 year old female with ileus vs SBO -Continue NGT to LIWS until bowel function returns -SBFT today -Coumadin on hold; currently on heparin gtt -Further plans after SBFT -Discussed with Dr. Lindsay Attending Note - Dr. Neftali CHEN shows passage through small bowel easily; no evidence obstruction Start clear liquids. The exam, history, and the medical decision-making described in the above note were completed with the assistance of the mid-level provider. I reviewed and agree with the findings presented. I attest that I had a [id number] encounter with the patient on the same day, and personally performed and documented my assessment and findings in the medical record. America Cerna Jul 14, 2016 10:42 Kyle Lindsay MD Jul 16, 2016 17:58
[2016-07-14 11:35] LABS: APTT (PATIENT) 37.7 SEC (24.3-30.1)
--- NOTE | 2016-07-14 11:43 | HHI.GIFU ---
GI Follow-up Note Consult Follow-up Subjective: Patient laying in bed comfortably, no new complaints except discomfort from NG tube. No flatus/stool passage; no emesis Objective: PHYSICAL EXAMINATION: Vitals signs stable No fever HEENT: EOMI ABDOMEN: Soft, mildly more distended, nontender; mildly high-pitched bowel sounds LOSS PREVENTION AUDITOR: alert and oriented times three. Available Data (labs, X- Rays, Procedues) : Undergoing gastrografin SBS; I'll review the images. ASSESSMENT/PLAN:SBO; NPO, NGT; will review gastrografin study. It was a pleasure seeing Ginger Rios Entered by: Corey Heredia MD Jul 14, 2016 11:43
[2016-07-14 11:46] LABS: BICARBONATE 28.6 MEQ/L (21.0-32.0); POTASSIUM 3.8 MEQ/L (3.5-5.1)
[2016-07-14 12:00] VITALS: BP 106/52; PULSE 72; RESP 16; TEMP 98.2; O2SAT 93
--- NOTE | 2016-07-14 12:50 | HHI.PR ---
Subjective Remarks Family at bedside. C/O of throat pain with NG tube, agreeable to continue NG tube for now and try Magic mouthwash. Small bowel series today. No CP or SOB. Objective Vitals Vital Signs Date Time Temp Pulse Resp B/P Pulse Ox O2 Delivery O2 Flow Rate FiO2 07/14/16 12:00 98.2 72 16 106/52 93 07/14/16 08:00 98.1 63 16 125/54 95 07/14/16 00:00 98.1 67 20 108/56 99 07/13/16 20:00 98.2 64 20 137/63 98 07/13/16 16:00 98.4 60 16 122/58 95 07/13/16 15:45 20 I/O 07/13/16 07/13/16 07/13/16 07/14/16 07/14/16 07/14/16 07:00 15:00 23:00 07:00 15:00 23:00 Intake Total 0 ml 1584 ml 0 ml 1200 ml 0 ml Output Total 300 ml 300 ml 525 ml Balance 0 ml 1584 ml -300 ml 900 ml -525 ml Intake Oral 0 ml 0 ml 0 ml 0 ml IV Total 1484 ml 1200 ml Other 100 ml Output Urine Total 300 ml 525 ml Gastric Drainage Total 300 ml # Voids 3 3 1 # Bowel Movements 0 0 0 Result Diagram: 07/12/16 1520 07/14/16 1050 Imaging Last Impressions Abdomen X-Ray 07/13/16 0000 Signed Impressions: Service Date/Time: Wednesday, July 13, 2016 10:17 - CONCLUSION: Persistent small bowel obstruction. Bro Bashir MD Abdomen/Pelvis CT 07/10/16 0814 Signed Impressions: Service Date/Time: June 09:25 - CONCLUSION: Findings are suspicious for a small bowel obstruction versus ileus. No intrapelvic mass seen and no discrete transition point identified. There is also a mild amount of abdominopelvic ascites. Ralph Baeza MD Objective Remarks GENERAL: Well-developed well-nourished. In no acute distress. NGT in place SKIN: Warm and dry. No lesions noted. HEENT: Normocephalic. Pupils equal and round. Mucous membranes pink and moist. CARDIOVASCULAR: Regular rate and rhythm. No murmur appreciated. RESPIRATORY: No accessory muscle use. Clear to auscultation. Breath sounds equal bilaterally. GASTROINTESTINAL: Abdomen soft, generalized TTP, nondistended. Bowel sounds x4. MUSCULOSKELETAL: No obvious deformities. No clubbing or cyanosis. No edema. NEUROLOGICAL: Awake and alert. No focal neurological deficits. Moves upper and lower extremities spontaneously. Normal speech. PSYCHIATRIC: Appropriate mood and affect; insight and judgment normal. A/P Problem List: (1) Small bowel obstruction ICD Code: K56.69 Status: Acute Assessment and Plan 81-year-old female with history of CAD, CABG 7 vessels, HTN, HLD, atrial fibrillation, TIA in 2013, osteoporosis, GERD, polymyalgia rheumatica 2000, presents with acute onset of abdominal pain and dry heaves on 07/09/16. Small bowel obstruction: -Abdomen/pelvis CT done 07/10, findings suspicious for a SBO versus ileus, no mass seen, mild amount of abdominopelvic ascites. -Abdominal x-ray 07/11 showed dilated bowel loops concerning for a SBO. -Per GI, CT showed a transition zone in the ileum proximal to the ileocecal valve. -Gastroenterology and general surgery consulted, appreciate recommendations, considering laparoscopic surgery if no improvement in 24-48hrs. -Continue IVF with D5 1/2 NS + KCl. Supportive treatment with IV Zofran and Compazine as needed. -Repeat abdominal x-ray 07/13 with persistent SBO -After discussion with Dr. Tom and Dr. Alvarez, ordered NGT placement -IV morphine and oral oxycodone prn pain -NGT, magic mouth wash for throat pain -Small bowel series pending Atrial fibrillation: Anticoagulated on Coumadin, INR 1.8. Chads2 Vasc score 6 ( HTN, age, TIA, female). -Coumadin held by the surgeon. -Continue IV heparin drip. -Monitor daily PT/INR. -Continue patient's Coreg for rate control. CAD/HTN/HLD: Chronic, continue patient's Coreg, Cozaar, statin. Aspirin on hold. Anxiety: Chronic, continue Xanax 0.25mg po q8h prn. DVT prophylaxis: Teds/SCDs. On heparin drip. Written by Ronal Sen, acting as scribe for Dr. Dennis on 07/14/16 at 12:49. Attending Statement The documentation accurately reflects the work performed [id number] by me, Dr. Dennis on 07/14/16 at 12:49. Ronal Sen Jul 14, 2016 12:49 [place] Dennis MD Jul 20, 2016 07:28
[2016-07-14] MEDS: D5-NS + KCL 20 MEQ INJ 1,000 ML IV SCH ×3 (13:24→22:00)
--- NOTE | 2016-07-14 13:39 | RADRPT ---
EXAM DATE/TIME: 07/14/2016 08:59 [facility] COMPARISON: CT ABDOMEN & PELVIS W CONTRAST, July 10, 2016, 9:25. INDICATIONS: Abdominal pain. Obstruction. Last bowel movement eight days ago. FLUORO TIME: 0.6 minutes IMAGE COUNT: 12 CONTRAST: MD Mcfarlane IMAGING TIME(S): 15 min, 30 min, 45 min, 1 hr, 2 hr MEDICAL HISTORY: Gastroesophageal reflux disease. SURGICAL HISTORY: CABG. Tubal ligation. ENCOUNTER: Subsequent ACUITY: 1 week PAIN SCORE: 8/10 LOCATION: Bilateral abdomen. FINDINGS: Gastrografin small bowel series through a nasogastric tube reveals some very mild uniform dilatation of small bowel to the cecum in a nonspecific fashion. Multiple spot films reveal no constricting or obstructing lesions. \ Small bowel transient time is less than two hours. CONCLUSION: Very minimal nonspecific dilatation. I do not see evidence for obstruction. Shar Lomas MD FACR on July 14, 2016 at 13:27 Board Certified Radiologist. This report was verified electronically.
[2016-07-14 16:00] VITALS: BP 110/76; PULSE 73; RESP 16; TEMP 97.9; O2SAT 95
[2016-07-14] MEDS: HEPARIN-D5W INJ 250 ML IV SCH (16:02)
[2016-07-14] MEDS: NYSTAT/DIPHENHY/LIDO MOUTHWASH (Adult) 120ML SWISH-SWAL SCH ×3 (16:11→21:59)
[2016-07-14 20:00] VITALS: BP 175/74; PULSE 81; RESP 18; TEMP 97.2; O2SAT 95
[2016-07-14 21:01] LABS: APTT (PATIENT) 48.2 SEC (24.3-30.1)
[2016-07-14] MEDS: ATORVASTATIN 20 MG TAB PO SCH (21:59)
[2016-07-14] MEDS: ZOLPIDEM TARTRATE 5 MG TAB PO PRN (21:59)
[2016-07-15 00:53] VITALS: BP 126/58; PULSE 76; RESP 18; TEMP 98; O2SAT 94
[2016-07-15 03:54] LABS: HEMATOCRIT 36.2 % (35.0-46.0); MEAN CELL VOLUME 93.6 FL (80.0-100.0); MEAN CORPUSCULAR HEMOGLOBIN 32.3 PG (27.0-34.0); MEAN CORPUSCULAR HGB CONC 34.5 % (32.0-36.0); PLATELET COUNT 142 TH/MM3 (150-450); RED BLOOD COUNT 3.87 MIL/MM3 (4.00-5.30); RED CELL DISTRIBUTION WIDTH 13.8 % (11.6-17.2); REVIEW FLAG FINAL; WHITE BLOOD COUNT 5.5 TH/MM3 (4.0-11.0)
[2016-07-15 04:00] VITALS: BP 139/63; PULSE 71; RESP 16; TEMP 97.8; O2SAT 96
[2016-07-15 04:01] LABS: APTT (PATIENT) 46.5 SEC (24.3-30.1)
[2016-07-15] MEDS: D5-NS + KCL 20 MEQ INJ 1,000 ML IV SCH ×2 (05:29→09:16)
--- NOTE | 2016-07-15 06:21 | HHI.GIFU ---
GI Follow-up Note Consult Follow-up Subjective: Patient laying in bed comfortably, no new complaints. She passed multiple stools yesterday afternoon and last night. She feels much better today. Objective: PHYSICAL EXAMINATION: Vitals signs stable No fever HEENT: EOMI ABDOMEN: Soft, nondistended, nontender; NL bowel sounds SCALE TESTER: alert and oriented times three. Available Data (labs, X- Rays, Procedues) : I reviewed the images yesterday evening with Dr. Veronica Lomas: contrast had entered the colon by two hours and a significant amount had passed into the colon by four hours. ASSESSMENT/PLAN:Resolved SBO. I suggest a gastroparesis diet, she may use Benefiber to help with the constipation. I encouraged her to drink more fluid, daily. She may follow up with Dr. Mccloud. It was a pleasure seeing Ginger Rios . Entered by: Corey Heredia MD Jul 15, 2016 06:21
[2016-07-15 08:30] VITALS: BP 143/64; PULSE 62; RESP 18; TEMP 97.5; O2SAT 95
[2016-07-15] MEDS: SODIUM CHLORIDE 0.9% FLUSH 5 ML FLUSH FLUSH SCH ×2 (09:00→21:00)
[2016-07-15] MEDS: CARVEDILOL 12.5 MG TAB PO SCH ×2 (09:11→21:29)
[2016-07-15] MEDS: LOSARTAN 50 MG TAB PO SCH (09:11)
[2016-07-15] MEDS: NYSTAT/DIPHENHY/LIDO MOUTHWASH (Adult) 120ML SWISH-SWAL SCH (09:12)
--- NOTE | 2016-07-15 11:22 | HHI.PR ---
Subjective Remarks Follow up for SBO. Had multiple loose BMs overnight. Has been ambulating. Still feels a little bloated. Objective Vitals Vital Signs Date Time Temp Pulse Resp B/P Pulse Ox O2 Delivery O2 Flow Rate FiO2 07/15/16 08:30 97.5 62 18 143/64 95 07/15/16 04:00 Room Air 07/15/16 04:00 97.8 71 16 139/63 96 07/15/16 00:53 98.0 76 18 126/58 94 07/15/16 00:00 Room Air 07/14/16 20:00 97.2 81 18 95 07/14/16 20:00 Room Air 07/14/16 20:00 175/74 07/14/16 16:00 97.9 73 16 110/76 95 07/14/16 12:00 98.2 72 16 106/52 93 I/O 07/14/16 07/14/16 07/14/16 07/15/16 07/15/16 07/15/16 07:00 15:00 23:00 07:00 15:00 23:00 Intake Total 1200 ml 1063 ml 647 ml 718 ml Output Total 300 ml 1025 ml Balance 900 ml 38 ml 647 ml 718 ml Intake Oral 0 ml IV Total 1200 ml 1063 ml 647 ml 718 ml Output Urine Total 525 ml Gastric Drainage Total 300 ml 500 ml # Voids 4 1 3 # Bowel Movements 4 0 2 Result Diagram: 07/15/16 0336 07/14/16 1050 Imaging Last Impressions Small Bowel X-Ray 07/14/16 0000 Signed Impressions: Service Date/Time: Thursday, July 14, 2016 08:59 - CONCLUSION: Very minimal nonspecific dilatation. I do not see evidence for obstruction. Shar Lomas MD FACR Abdomen X-Ray 07/13/16 0000 Signed Impressions: Service Date/Time: Wednesday, July 13, 2016 10:17 - CONCLUSION: Persistent small bowel obstruction. Bro Bashir MD Abdomen/Pelvis CT 07/10/16 0814 Signed Impressions: Service Date/Time: June 09:25 - CONCLUSION: Findings are suspicious for a small bowel obstruction versus ileus. No intrapelvic mass seen and no discrete transition point identified. There is also a mild amount of abdominopelvic ascites. Ralph Baeza MD Objective Remarks GENERAL: Well-developed well-nourished. In no acute distress. Ambulating in the room. SKIN: Warm and dry. No lesions noted. HEENT: Normocephalic. Pupils equal and round. Mucous membranes pink and moist. CARDIOVASCULAR: Regular rate and rhythm. No murmur appreciated. RESPIRATORY: No accessory muscle use. Clear to auscultation. Breath sounds equal bilaterally. GASTROINTESTINAL: Abdomen soft, nontender, nondistended. Bowel sounds x4. MUSCULOSKELETAL: No obvious deformities. No clubbing or cyanosis. No edema. NEUROLOGICAL: Awake and alert. No focal neurological deficits. Moves upper and lower extremities spontaneously. Normal speech. PSYCHIATRIC: Appropriate mood and affect; insight and judgment normal. A/P Problem List: (1) Small bowel obstruction ICD Code: K56.69 Status: Acute Assessment and Plan 81-year-old female with history of CAD, CABG 7 vessels, HTN, HLD, atrial fibrillation, TIA in 2013, osteoporosis, GERD, polymyalgia rheumatica 2000, presents with acute onset of abdominal pain and dry heaves on 07/09/16. Small bowel obstruction: -Abdomen/pelvis CT done 07/10, findings suspicious for a SBO versus ileus, no mass seen, mild amount of abdominopelvic ascites. -Abdominal x-ray 07/11 showed dilated bowel loops concerning for a SBO. -Per GI, CT showed a transition zone in the ileum proximal to the ileocecal valve. -Gastroenterology and general surgery consulted, appreciate recommendations, considering laparoscopic surgery if no improvement in 24-48hrs. -Continue IVF with D5 1/2 NS + KCl. Supportive treatment with IV Zofran and Compazine as needed. -Repeat abdominal x-ray 07/13 with persistent SBO -S/P NGT, now removed -IV morphine and oral oxycodone prn pain -Small bowel series 07/14 showed no evidence for obstruction -07/15, symptoms improved, clear liquids and ADAT Atrial fibrillation: Anticoagulated on Coumadin, INR 1.8. Chads2 Vasc score 6 ( HTN, age, TIA, female). -Coumadin held by the surgeon, will now resume. -Continue IV heparin drip until INR therapeutic, may require Lovenox bridging at discharge. -Monitor PT/INR. -Continue patient's Coreg for rate control. CAD/HTN/HLD: Chronic, continue patient's Coreg, Cozaar, statin. Aspirin on hold. Anxiety: Chronic, continue Xanax 0.25mg po q8h prn. DVT prophylaxis: Teds/SCDs. On heparin drip and Coumadin. Written by Ronal Sen, acting as scribe for Dr. Dennis on 07/15/16 at 11:21. Discharge Planning Possible discharge planning tomorrow if patient remains stable and is tolerating diet Attending Statement The documentation accurately reflects the work performed [id number] by me, Dr. Dennis on 07/15/16 at 11:21. Ronal Sen Jul 15, 2016 11:22 [place] Dennis MD Jul 21, 2016 00:43
--- NOTE | 2016-07-15 11:39 | HHI.PR ---
Subjective Subjective Notes Happy that NGT out Out of bed to chair Reports multiple BMs overnight at bedside Objective Vitals/I&O Vital Signs Date Time Temp Pulse Resp B/P Pulse Ox O2 Delivery O2 Flow Rate FiO2 07/15/16 08:30 97.5 62 18 143/64 95 07/15/16 04:00 Room Air Labs Laboratory Tests Test 07/14/16 07/15/16 20:37 03:36 Activated Partial 48.2 46.5 Thromboplast Time White Blood Count 5.5 Red Blood Count 3.87 Hemoglobin 12.5 Hematocrit 36.2 Mean Corpuscular Volume 93.6 Mean Corpuscular Hemoglobin 32.3 Mean Corpuscular Hemoglobin 34.5 Concent Red Cell Distribution Width 13.8 Platelet Count 142 Mean Platelet Volume 7.9 Radiology Last Impressions Abdomen X-Ray 07/13/16 0000 Signed Impressions: Service Date/Time: Wednesday, July 13, 2016 10:17 - CONCLUSION: Persistent small bowel obstruction. Bro Bashir MD Abdomen/Pelvis CT 07/10/16 0814 Signed Impressions: Service Date/Time: June 09:25 - CONCLUSION: Findings are suspicious for a small bowel obstruction versus ileus. No intrapelvic mass seen and no discrete transition point identified. There is also a mild amount of abdominopelvic ascites. Ralph Baeza MD Cardiovascular: Regular Lungs: Clear Abdomen: Non-tender, Other (mildly distended but improved from yesterday's exam ) Extremities: No edema A/P Problem List: (1) Ileus (2) Nausea (3) ASHD (arteriosclerotic heart disease) Assessment and Plan 81 year old female with ileus vs SBO -NGT out -SBFT shows no obstruction -Start clears today -Continue non-operative treatment -Discussed with Dr. Lindasy Attending Note - Dr. Lindsay Abdomen soft; tolerating clears today; advance to full liquids for dinner The exam, history, and the medical decision-making described in the above note were completed with the assistance of the mid-level provider. I reviewed and agree with the findings presented. I attest that I had a [id number] encounter with the patient on the same day, and personally performed and documented my assessment and findings in the medical record. America Cerna Jul 15, 2016 11:39 Kyle Lindsay MD Jul 16, 2016 17:56
[2016-07-15 12:30] VITALS: BP 135/63; PULSE 59; RESP 18; TEMP 95.4; O2SAT 97
[2016-07-15 13:07] LABS: APTT (PATIENT) 57.2 SEC (24.3-30.1); INTERNATIONAL NORMALIZED RATIO 2.8 RATIO; PROTHROMBIN TIME - PATIENT 32.7 SEC (9.8-11.6)
[2016-07-15 17:14] VITALS: BP 158/74; PULSE 67; RESP 16; TEMP 96.7; O2SAT 98
[2016-07-15 20:00] VITALS: BP 130/58; PULSE 69; RESP 18; TEMP 95.4; O2SAT 97
[2016-07-15] MEDS: ZOLPIDEM TARTRATE 5 MG TAB PO PRN (21:29)
[2016-07-15] MEDS: ATORVASTATIN 20 MG TAB PO SCH (21:29)
[2016-07-16] VITALS: BP 175/74; PULSE 73; RESP 18; TEMP 96.9; O2SAT 97
[2016-07-16] MEDS ORDERED: BENZOCAINE-MENTHOL (SUGAR FREE) 15 MG-3.6 MG LOZENGE BUCCAL ONE (03:30)
[2016-07-16] MEDS: D5-NS + KCL 20 MEQ INJ 1,000 ML IV SCH (03:49)
[2016-07-16 05:53] LABS: APTT (PATIENT) 55.4 SEC (24.3-30.1)
[2016-07-16 05:54] VITALS: BP 140/64; PULSE 68; RESP 18; TEMP 98.4; O2SAT 94
[2016-07-16] MEDS ORDERED: BENZOCAINE 6 MG/MENTHOL 10 MG LOZENGE BUCCAL PRN (07:45)
[2016-07-16] MEDS: ASPIRIN EC 81 MG TABEC PO SCH (07:50)
[2016-07-16] MEDS: LOSARTAN 50 MG TAB PO SCH (07:51)
[2016-07-16] MEDS: SODIUM CHLORIDE 0.9% FLUSH 5 ML FLUSH FLUSH SCH (07:51)
[2016-07-16] MEDS: CARVEDILOL 12.5 MG TAB PO SCH (07:51)
[2016-07-16 08:00] VITALS: BP 155/70; PULSE 66; RESP 18; TEMP 98.4; O2SAT 94
[2016-07-16] MEDS ORDERED: SENN8.6T5 PO (10:36)
[2016-07-16 12:00] VITALS: BP 141/65; PULSE 60; RESP 18; TEMP 95.3; O2SAT 98
--- NOTE | 2016-07-16 12:34 | HHI.PR ---
Subjective Remarks Tolerating diet, had regular diet for breakfast, no nausea or vomiting. No abdominal pain, afebrile. Good bowel movements, one this morning, passing gas. Objective Vitals Vital Signs Date Time Temp Pulse Resp B/P Pulse Ox O2 Delivery O2 Flow Rate FiO2 07/16/16 08:10 Room Air 07/16/16 08:00 98.4 66 18 155/70 94 07/16/16 05:54 98.4 68 18 140/64 94 07/16/16 00:00 96.9 73 18 175/74 97 07/15/16 21:30 Room Air 07/15/16 20:00 95.4 69 18 130/58 97 07/15/16 17:14 96.7 67 16 158/74 98 I/O 07/15/16 07/15/16 07/15/16 07/16/16 07/16/16 07/16/16 07:00 15:00 23:00 07:00 15:00 23:00 Intake Total 718 ml 1534 ml 1033 ml 1101 ml Balance 718 ml 1534 ml 1033 ml 1101 ml Intake Oral 675 ml 240 ml 240 ml IV Total 718 ml 859 ml 793 ml 861 ml # Voids 3 5 2 2 # Bowel Movements 2 0 Result Diagram: 07/15/16 0336 07/14/16 1050 Objective Remarks GENERAL: Well-developed well-nourished. In no acute distress. Ambulating in the room. SKIN: Warm and dry. No lesions noted. HEENT: Normocephalic. Pupils equal and round. Mucous membranes pink and moist. CARDIOVASCULAR: Regular rate and rhythm. No murmur appreciated. RESPIRATORY: No accessory muscle use. Clear to auscultation. Breath sounds equal bilaterally. GASTROINTESTINAL: Abdomen soft, nontender, nondistended. Bowel sounds x4. Good bowel sounds. MUSCULOSKELETAL: No obvious deformities. No clubbing or cyanosis. No edema. NEUROLOGICAL: Awake and alert. No focal neurological deficits. Moves upper and lower extremities spontaneously. Normal speech. A/P Problem List: (1) Small bowel obstruction ICD Code: K56.69 Status: Acute Assessment and Plan 81-year-old female with history of CAD, CABG 7 vessels, HTN, HLD, atrial fibrillation, TIA in 2013, osteoporosis, GERD, polymyalgia rheumatica 2000, presents with acute onset of abdominal pain and dry heaves on 07/09/16. Small bowel obstruction: -Abdomen/pelvis CT done 07/10, findings suspicious for a SBO versus ileus, no mass seen, mild amount of abdominopelvic ascites. -Abdominal x-ray 07/11 showed dilated bowel loops concerning for a SBO. -Per GI, CT showed a transition zone in the ileum proximal to the ileocecal valve. -Gastroenterology and general surgery consulted, appreciate recommendations, considering laparoscopic surgery if no improvement in 24-48hrs. -IV morphine and oral oxycodone prn pain -Small bowel series 07/14 showed no evidence for obstruction -07/15, symptoms improved, tolerating diet, tolerated breakfast, discussed with general surgery, tolerates lunch and dinner, may go home. Atrial fibrillation: Anticoagulated on Coumadin, INR 1.8. Chads2 Vasc score 6 ( HTN, age, TIA, female). - Continue Coumadin, stop heparin, INR therapeutic -Continue patient's Coreg for rate control. CAD/HTN/HLD: Chronic, continue patient's Coreg, Cozaar, statin. Aspirin on hold. Anxiety: Chronic, continue Xanax 0.25mg po q8h prn. DVT prophylaxis: Teds/SCDs. On Coumadin. Discharge Planning Discharge today if tolerates diet Victor Manuel Vences MD Jul 16, 2016 12:34
--- NOTE | 2016-07-16 12:43 | HHI.DS ---
Discharge Summary Admission Date Jul 11, 2016 at 15:46 Discharge Date: Jul 16, 2016 Admitting Diagnosis Ileus with abdominal pain (1) Small bowel obstruction ICD Code: K56.69 Diagnosis: Principal Procedures None Brief History - From Admission Feeling pretty good this AM. Notes pain yesterday was 9-10. Minimal today but rates it about a 5. States her pain this time was much different than her chronic daily discomfort. No fever. She had broth last PM and her PM meds without any problems. Fair sleep last PM as she states the nurses kept waking her up. No BM since admit. No nausea overnight. Was slightly nauseated this AM upon first getting up but that has gone. She is anxious to get some breakfast. no CP, no SOB, knee somewhat achy, otherwise feeling fine. Inquiring about going home. CBC/BMP: 07/15/16 0336 07/14/16 1050 Significant Findings Laboratory Tests Test 07/13/16 07/14/16 07/14/16 07/14/16 14:55 04:58 10:50 10:53 Sodium Level 128 MEQ/L 132 MEQ/L (136-145) (136-145) Chloride Level 95 MEQ/L 97 MEQ/L (98-107) (98-107) Random Glucose 131 MG/DL 109 MG/DL (74-106) (74-106) Calcium Level 8.3 MG/DL 8.0 MG/DL (8.5-10.1) (8.5-10.1) Prothrombin Time 30.3 SEC (9.8-11.6) Activated Partial 103.4 SEC 37.7 SEC Thromboplast Time (24.3-30.1) (24.3-30.1) Estimat Glomerular Filtration 65 ML/MIN (>89) Rate Test 07/14/16 07/15/16 07/15/16 07/16/16 20:37 03:36 11:42 04:55 Activated Partial 48.2 SEC 46.5 SEC 57.2 SEC 55.4 SEC Thromboplast Time (24.3-30.1) (24.3-30.1) (24.3-30.1) (24.3-30.1) Red Blood Count 3.87 MIL/MM3 (4.00-5.30) Platelet Count 142 TH/MM3 (150-450) Prothrombin Time 32.7 SEC (9.8-11.6) PE at Discharge GENERAL: Well-developed well-nourished. In no acute distress. Ambulating in the room. SKIN: Warm and dry. No lesions noted. HEENT: Normocephalic. Pupils equal and round. Mucous membranes pink and moist. CARDIOVASCULAR: Regular rate and rhythm. No murmur appreciated. RESPIRATORY: No accessory muscle use. Clear to auscultation. Breath sounds equal bilaterally. GASTROINTESTINAL: Abdomen soft, nontender, nondistended. Bowel sounds x4. Good bowel sounds. MUSCULOSKELETAL: No obvious deformities. No clubbing or cyanosis. No edema. NEUROLOGICAL: Awake and alert. No focal neurological deficits. Moves upper and lower extremities spontaneously. Normal speech. Hospital Course This is a 81-year-old female with history of CAD, CABG 7 vessels, HTN, HLD, atrial fibrillation, TIA in 2013, osteoporosis, GERD, polymyalgia rheumatica 2000, presents with acute onset of abdominal pain and dry heaves. Abdomen/ pelvis CT done 07/10, findings suspicious for a SBO versus ileus, no mass seen, mild amount of abdominopelvic ascites. Abdominal x-ray 07/11 showed dilated bowel loops concerning for a SBO. CT showed a transition zone in the ileum proximal to the ileocecal valve. Gastroenterology and general surgery were consulted. Patient was continued on pain medications.Small bowel series 07/14 showed no evidence for obstruction, on July 15, patient's symptoms resolved , diet was introduced. The next day, patient tolerated regular diet and was cleared for discharge home. She will be discharged and set up follow-up with GI in one week. She will continue her home medications. Pt Condition on Discharge: Good Discharge Disposition: Discharge Home Discharge Time: > 30 minutes Discharge Instructions DIET: Follow Instructions for: Heart Healthy Diet Additional Diet Instructions: small frequent feeding Activities you can perform: Regular-No Restrictions Victor Manuel Vences MD Jul 16, 2016 12:43 Discharge Instructions DIET: Follow Instructions for: Heart Healthy Diet Additional Diet Instructions: small frequent feeding Activities you can perform: Regular-No Restrictions Victor Manuel Vences MD Jul 16, 2016 12:43
--- NOTE | 2016-07-16 13:19 | HHI.PR ---
Subjective Subjective Notes Resting in bed Inquiring about going home Tolerated fulls yesterday Objective Vitals/I&O Vital Signs Date Time Temp Pulse Resp B/P Pulse Ox O2 Delivery O2 Flow Rate FiO2 07/16/16 08:10 Room Air 07/16/16 08:00 98.4 66 18 155/70 94 Labs Laboratory Tests Test 07/16/16 04:55 Activated Partial 55.4 Thromboplast Time Radiology Last Impressions Abdomen X-Ray 07/13/16 0000 Signed Impressions: Service Date/Time: Wednesday, July 13, 2016 10:17 - CONCLUSION: Persistent small bowel obstruction. Bro Bashir MD Abdomen/Pelvis CT 07/10/16 0814 Signed Impressions: Service Date/Time: June 09:25 - CONCLUSION: Findings are suspicious for a small bowel obstruction versus ileus. No intrapelvic mass seen and no discrete transition point identified. There is also a mild amount of abdominopelvic ascites. Ralph Baeza MD Cardiovascular: Regular Lungs: Clear Abdomen: Non-tender, Other (mildly distended but greatly improved from yesterday's exam ) Extremities: No edema A/P Problem List: (1) Ileus (2) Nausea (3) ASHD (arteriosclerotic heart disease) Assessment and Plan 81 year old female with ileus vs SBO -Advance to regular diet today -If tolerates breakfast, lunch and dinner today okay to DC home from GS standpoint -Reviewed dietary restrictions again today -Continue non-operative treatment -Discussed with Dr. Lindsay Attending Note - Dr. Lindsay Abdomen soft but mildly distended. Tolerating regular diet for breakfast and lunch; if no problems with dinner, discharge home. The exam, history, and the medical decision-making described in the above note were completed with the assistance of the mid-level provider. I reviewed and agree with the findings presented. I attest that I had a [id number] encounter with the patient on the same day, and personally performed and documented my assessment and findings in the medical record. America Cerna Jul 16, 2016 13:19 Kyle Lindsay MD Jul 16, 2016 17:55
[2016-07-16] MEDS: WARFARIN SOD 3 MG TAB PO SCH (15:52)
[2016-07-16 16:00] VITALS: BP 158/79; PULSE 67; RESP 18; TEMP 96.3; O2SAT 95
== END 2016-07-16 18:18 | disposition home or self-care (01) | DRG 389 ==
LOC: PHED 07:44 → INTOOBSV 10:19 → PHEDA 10:19 → PH3B 11:30 → OBSVTOIN 07-11 15:46 → N07A 07-12 00:30
PROVIDERS: ADMIT Hospitalist; ATTEND Hospitalist
DX: K56.60 Unspecified intestinal obstruction (principal); R18.8 Other ascites; I48.91 Unspecified atrial fibrillation; E87.1 Hypo-osmolality and hyponatremia; K31.84 Gastroparesis; Z95.1 Presence of aortocoronary bypass graft; K52.9 Noninfective gastroenteritis and colitis, unspecified; I05.9 Rheumatic mitral valve disease, unspecified; I25.10 Atherosclerotic heart disease of native coronary artery without angina pectoris; E78.00 Pure hypercholesterolemia, unspecified; I10 Essential (primary) hypertension; M35.3 Polymyalgia rheumatica; E78.5 Hyperlipidemia, unspecified; M81.0 Age-related osteoporosis without current pathological fracture; K21.9 Gastro-esophageal reflux disease without esophagitis; G47.00 Insomnia, unspecified; Z96.652 Presence of left artificial knee joint; Z79.01 Long term (current) use of anticoagulants; Z91.040 Latex allergy status; Z88.0 Allergy status to penicillin; Z88.1 Allergy status to other antibiotic agents; Z86.73 Personal history of transient ischemic attack (TIA), and cerebral infarction without residual deficits; F41.9 Anxiety disorder, unspecified; Z88.5 Allergy status to narcotic agent; Z88.8 Allergy status to other drugs, medicaments and biological substances; M17.12 Unilateral primary osteoarthritis, left knee; K59.01 Slow transit constipation
CPT/HCPCS: 74000; 74020; 74177; 74250; 80048; 80053; 82105; 82378; 83690; 84484; 85025; 85027; 85610; 85730; 86301; 86304; 93005; 96365; 96375; C9113; J0360; J1644; J1885; J2405; J2765; J3480; Q9963; Q9967

== ENCOUNTER → 2016-08-08 | Outpatient (CLI) | payer MEDICARE ==
[~2016-08-08] MED LIST changes: -ALPR.25 PO; +ALPR0.25 PO; +ASPI-110 PO; -ASPI81TA82 PO; -CALC750C PO; +CARV6.252 PO; -CITR500T PO; -CORE12.5 PO; -COZA50TA PO; -GABA300C3 PO; +LOSA50TA PO; -MULT1TAB46 PO; -PROM25TA5 PO; +ROSU10 PO; -ROSU20 PO; +SENN8.6T5 PO; -TRAM50TA PO; +TUMS500C CHEW; +WARF-18 PO; +WARF-58 PO; -WARF2.5 PO; -WARF2.5T40 PO; -Z.0.WALKERFRONT
[2016-08-08 09:41] LABS: AUTOMATED NEUTROPHIL # 3.7 TH/MM3 (1.8-7.7); BASOPHIL # 0.1 TH/MM3 (0-0.2); BASOPHIL % 1.4 % (0.0-2.0); EOSINOPHIL # 0.2 TH/MM3 (0-0.4); EOSINOPHIL % 3.5 % (0.0-4.0); HEMO FLAGS DIFF FINAL; LYMPH % 16.3 % (9.0-44.0); LYMPHOCYTE # 0.9 TH/MM3 (1.0-4.8); MEAN CELL VOLUME 94.1 FL (80.0-100.0); MEAN CORPUSCULAR HEMOGLOBIN 31.6 PG (27.0-34.0); MEAN CORPUSCULAR HGB CONC 33.6 % (32.0-36.0); MONO % 8.1 % (0.0-8.0); NEUT % 70.7 % (16.0-70.0); PLATELET COUNT 167 TH/MM3 (150-450); RED BLOOD COUNT 4.36 MIL/MM3 (4.00-5.30); RED CELL DISTRIBUTION WIDTH 14.3 % (11.6-17.2); WHITE BLOOD COUNT 5.2 TH/MM3 (4.0-11.0)
[2016-08-08 10:05] LABS: ALKALINE PHOSPHATASE 62 U/L (45-117); ALT (GPT) 22 U/L (10-53); ANION GAP 5 MEQ/L (5-15); AST (GOT) 28 U/L (15-37); BICARBONATE 30.7 MEQ/L (21.0-32.0); BLOOD UREA NITROGEN 10 MG/DL (7-18); CHLORIDE 102 MEQ/L (98-107); GLOMERULAR FILTRATION RATE 69 ML/MIN (>89); GLUCOSE,FASTING 90 MG/DL (74-99); HDL CHOLESTEROL 70.4 MG/DL (40.0-60.0); LDL CHOLESTEROL 60 MG/DL (0-99); SODIUM (NA) 138 MEQ/L (136-145); TOTAL BILIRUBIN ADULT 1.1 MG/DL (0.2-1.0)
== END ==
LOC: PLAB 07:54
PROVIDERS: ATTEND Family Medicine
DX: I10 Essential (primary) hypertension (principal); I25.10 Atherosclerotic heart disease of native coronary artery without angina pectoris
CPT/HCPCS: 36415; 80053; 80061; 85025

== ENCOUNTER → 2016-08-15 | Outpatient (CLI) | payer MEDICARE | LOC: PLAB 10:35 | PROVIDERS: ATTEND Family Medicine | DX: R68.89 Other general symptoms and signs (principal) | CPT/HCPCS: 36415; 84443 ==

== ENCOUNTER → 2017-03-19 | Outpatient (CLI) | payer MEDICARE ==
[~2017-03-19] MED LIST changes: -SENN8.6T5 PO; -WARF-58 PO
[2017-03-19 13:23] LABS: AUTOMATED NEUTROPHIL # 4.6 TH/MM3 (1.8-7.7); BASOPHIL % 0.5 % (0.0-2.0); EOSINOPHIL # 0.1 TH/MM3 (0-0.4); EOSINOPHIL % 2.2 % (0.0-4.0); HEMATOCRIT 40.3 % (35.0-46.0); HEMOGLOBIN 13.7 GM/DL (11.6-15.3); LYMPH % 13.2 % (9.0-44.0); LYMPHOCYTE # 0.8 TH/MM3 (1.0-4.8); MEAN CELL VOLUME 95.4 FL (80.0-100.0); MEAN CORPUSCULAR HEMOGLOBIN 32.4 PG (27.0-34.0); MEAN PLATELET VOLUME 7.7 FL (7.0-11.0); MONO % 7.7 % (0.0-8.0); MONOCYTE # 0.5 TH/MM3 (0-0.9); NEUT % 76.4 % (16.0-70.0); PLATELET COUNT 159 TH/MM3 (150-450); RED BLOOD COUNT 4.23 MIL/MM3 (4.00-5.30); RED CELL DISTRIBUTION WIDTH 14.1 % (11.6-17.2)
[2017-03-19 13:46] LABS: ALBUMIN 3.5 GM/DL (3.4-5.0); AST (GOT) 34 U/L (15-37); BICARBONATE 30.7 MEQ/L (21.0-32.0); BLOOD UREA NITROGEN 9 MG/DL (7-18); CALCIUM 8.8 MG/DL (8.5-10.1); CHLORIDE 99 MEQ/L (98-107); CHOLESTEROL 141 MG/DL (120-200); CREATININE 0.77 MG/DL (0.50-1.00); GLOMERULAR FILTRATION RATE 72 ML/MIN (>89); GLUCOSE,FASTING 98 MG/DL (74-99); SODIUM (NA) 135 MEQ/L (136-145)
[2017-03-19 13:57] LABS: ALKALINE PHOSPHATASE 70 U/L (45-117); ALT (GPT) 24 U/L (10-53); CHOLESTEROL/ HDL RATIO 1.86 RATIO; HDL CHOLESTEROL 75.6 MG/DL (40.0-60.0); LDL CHOLESTEROL 51 MG/DL (0-99); TOTAL BILIRUBIN ADULT 0.9 MG/DL (0.2-1.0); TOTAL PROTEIN 7.3 GM/DL (6.4-8.2); TRIGLYCERIDES 70 MG/DL (42-150)
== END ==
LOC: PLAB 08:46
PROVIDERS: ATTEND Family Medicine
DX: E78.2 Mixed hyperlipidemia (principal); I10 Essential (primary) hypertension; D69.6 Thrombocytopenia, unspecified
CPT/HCPCS: 36415; 80053; 80061; 85025

== ENCOUNTER → 2017-06-17 | Outpatient (CLI) | payer MEDICARE ==
[~2017-06-17] MED LIST changes: -ASPI-110 PO; +ASPI1TAB57 PO
[2017-06-17 13:39] LABS: CREATININE 0.93 MG/DL (0.50-1.00)
== END ==
LOC: PLAB 10:16
PROVIDERS: ATTEND Internal Medicine Interventional Cardiology
DX: I10 Essential (primary) hypertension (principal)
CPT/HCPCS: 36415; 82565; 84132; 84295; 84520

== ENCOUNTER → 2017-06-23 | Outpatient (CLI) | payer MEDICARE ==
[2017-06-23 14:09] LABS: CREATININE 0.74 MG/DL (0.50-1.00)
== END ==
LOC: PLAB 11:02
PROVIDERS: ATTEND Internal Medicine Interventional Cardiology
DX: I10 Essential (primary) hypertension (principal)
CPT/HCPCS: 36415; 82565; 84132; 84295; 84520

== ENCOUNTER → 2017-09-18 | Outpatient (CLI) | payer MEDICARE ==
[2017-09-18 10:25] LABS: BASOPHIL % 0.6 % (0.0-2.0); EOSINOPHIL # 0.2 TH/MM3 (0-0.4); HEMATOCRIT 40.4 % (35.0-46.0); HEMOGLOBIN 13.8 GM/DL (11.6-15.3); LYMPHOCYTE # 0.8 TH/MM3 (1.0-4.8); MEAN CORPUSCULAR HEMOGLOBIN 32.9 PG (27.0-34.0); MEAN CORPUSCULAR HGB CONC 34.3 % (32.0-36.0); MEAN PLATELET VOLUME 7.8 FL (7.0-11.0); MONO % 8.3 % (0.0-8.0); MONOCYTE # 0.5 TH/MM3 (0-0.9); NEUT % 73.1 % (16.0-70.0); PLATELET COUNT 162 TH/MM3 (150-450); RED BLOOD COUNT 4.21 MIL/MM3 (4.00-5.30); WHITE BLOOD COUNT 5.5 TH/MM3 (4.0-11.0)
[2017-09-18 10:48] LABS: ALBUMIN 3.6 GM/DL (3.4-5.0); ALT (GPT) 26 U/L (10-53); AST (GOT) 32 U/L (15-37); BICARBONATE 28.3 MEQ/L (21.0-32.0); BLOOD UREA NITROGEN 9 MG/DL (7-18); CHLORIDE 103 MEQ/L (98-107); CHOLESTEROL 142 MG/DL (120-200); GLOMERULAR FILTRATION RATE 69 ML/MIN (>89); GLUCOSE,FASTING 79 MG/DL (74-99); SODIUM (NA) 139 MEQ/L (136-145)
[2017-09-18 10:51] LABS: ALKALINE PHOSPHATASE 64 U/L (45-117); CHOLESTEROL/ HDL RATIO 2.05 RATIO; LDL CHOLESTEROL 60 MG/DL (0-99); TOTAL PROTEIN 6.9 GM/DL (6.4-8.2); TRIGLYCERIDES 65 MG/DL (42-150)
== END ==
LOC: PLAB 08:16
PROVIDERS: ATTEND Family Medicine
DX: I25.10 Atherosclerotic heart disease of native coronary artery without angina pectoris (principal); I48.91 Unspecified atrial fibrillation
CPT/HCPCS: 36415; 80053; 80061; 85025